=== PATIENT | male | born 1930 | race Asian ===

== ENCOUNTER 2016-09-13 19:33 | Inpatient (IN) | payer MEDICARE, OTHER ==
[2016-09-13] VITALS (7 sets, daily range): BP systolic 83–108; BP diastolic 57–70
[~2016-09-13] VITALS: Ht 167.6 cm; Wt 90.7 kg
[2016-09-13] MEDS ORDERED: Ampicillin/Sulbactam Sod 3 GM in NS 110 ML IV SCH (19:45)
[2016-09-13 20:07] LABS: MEAN CORPUSCULAR HEMOGLOBIN 35.6 PG (27.0-31.0); MEAN CORPUSCULAR HGB CONC 33.7 G/DL (32.0-36.0); MEAN CORPUSCULAR VOLUME 106 FL (80-99); PLATELET COUNT 117 K/UL (150-450); RED BLOOD COUNT 4.07 M/UL (4.70-6.10); RED CELL DISTRIBUTION WIDTH 12.6 % (11.6-14.8); WHITE BLOOD COUNT 10.3 K/UL (4.8-10.8)
[2016-09-13 20:41] LABS: TROPONIN I < 0.30 ng/mL (<=0.30)
[2016-09-13] MEDS ORDERED: ALBUTEROL2.5 MG/3 M INH (20:43)
[2016-09-13] MEDS ORDERED: ATENOLOL25 MG ORAL (20:44)
[2016-09-13 20:45] LABS: ALANINE AMINOTRANSFERASE 22 U/L (3-41); ALBUMIN/GLOBULIN RATIO 0.9 (1.0-2.7); ANION GAP 17 (5-15); ASPARTATE AMINO TRANSFERASE 26 U/L (5-40); CALCIUM 9.2 mg/dL (8.6-10.2); CARBON DIOXIDE 31 mEQ/L (20-30); CHLORIDE 100 mEQ/L (98-107); CREATININE 1.9 mg/dL (0.7-1.2); HEMOLYSIS 6; POTASSIUM 3.8 mEQ/L (3.4-4.9); SODIUM 148 mEQ/L (135-145); TOTAL PROTEIN 6.6 g/dL (6.6-8.7)
[2016-09-13] MEDS ORDERED: FUROSEMIDE40 MG ORAL (20:45)
[2016-09-13] MEDS ORDERED: TAMSULOSIN HCL0.4 MG ORAL (20:45)
[2016-09-13] MEDS ORDERED: DOCUSATE SODIU100 MG ORAL (20:45)
[2016-09-13] MEDS ORDERED: AMLODIPINE BESYL5 MG ORAL (20:46)
[2016-09-13] MEDS ORDERED: PREDNISOLO15 MG/5 M1 ORAL (20:47)
[2016-09-13] MEDS ORDERED: LOVASTATIN20 MG ORAL (20:47)
[2016-09-13] MEDS ORDERED: SENNOSIDES8.6 MG ORAL (20:48)
[2016-09-13 20:50] LABS: REFLEX LACTIC ACID YES OR NO YES
[2016-09-13] MEDS ORDERED: ACETAMINOPHEN120 MG ORAL (20:50)
[2016-09-13 20:55] LABS: CKMB 3.4 ng/mL (< 6.7)
[2016-09-13 21:05] LABS: BILIRUBIN,DIRECT 0.3 mg/dL (0.1-0.3)
[2016-09-13 21:15] LABS: LYMPHOCYTES % (MANUAL) 12 % (20-45); NEUTROPHILS % (MANUAL) 84 % (45-75); TOTAL CELLS COUNTED 100
[2016-09-13 21:16] LABS: ANISOCYTOSIS 1+; BAND NEUTROPHILS % (MANUAL) 0 % (0-8); BASOPHILS % (MANUAL) 0 % (0-2); EOSINOPHILS % (MANUAL) 0 % (0-3); PLATELET ESTIMATE DECREASED; PLATELET MORPHOLOGY NORMAL
--- NOTE | 2016-09-13 23:54 | Emergency Room Report ---
History of Present Illness General Chief Complaint: Dyspnea/Respdistress Source: Family Member, Medical Record, EMS Present Illness HPI Patient is an 86year-old male brought in by ambulance for increased difficulty breathing. Patient has prior of pulmonary fibrosis and had become more short of breath. He had usually been on 4 Liters nasal cannula which had been increased to 15L mask. He had previous noted DNR on POLST. Patient was noted to have some fever. Allergies: Coded Allergies: PENICILLINS (Verified Allergy, Unknown, 09/13/16) Patient History Past Medical History: see triage record, old chart reviewed Reviewed Nursing Documentation: PMH: Agreed, PSxH: Agreed Nursing Documentation-PMH Past Medical History: No History, Except For Hx Hypertension: Yes - Primary Hx Diabetes: Yes - Type 2 Review of Systems All Other Systems: limited - by acuity and shortness of breath Physical Exam Vital Signs Date Time Temp Pulse Resp B/P Pulse Ox O2 Delivery O2 Flow Rate FiO2 09/13/16 19:30 98.8 89 40 105/69 72 Non-Rebreather 15.0 09/13/16 19:57 100 General Appearance: alert, moderate distress, Chronically Ill Eyes: bilateral eye other - left eyelid drainage ENT: moist mucus membranes Neck: limited range of motion Respiratory: crackles - bilaterally Cardiovascular #1: edema Musculoskeletal: decreased range of motion, swelling Neurologic: alert, responsive, motor weakness Skin: well hydrated, normal turgor Medical Decision Making Diagnostic Impression: Primary Impression: Respiratory distress Additional Impressions: Pulmonary fibrosis Hypotension DNR (do not resuscitate) ER Course Patient presented for shortness of breath. Differential diagnosis included but was not limited to pneumonia, CHF, pulmonary edema, pulmonary fibrosis, pulmonary embolism, pneumothorax, among others. Patient was noted to be markedly short of breath. Because of complexity of patient's case laboratory studies were ordered. He was given IV fluids for hypotension. He was started on IV antibiotics. Patients code status was discussed with his daughter who is POA. She reiterated patient was not to be intubated except to promote comfort. He was noted to have some improvement in oxygenation with BIPAP. Patient was discussed with Dr. Frederic Julian for inpatient management. Dr. Stubbs was contacted for pulmonary consult. Labs Test 09/13/16 19:40 09/13/16 21:21 White Blood Count 10.3 K/UL (4.8-10.8) Red Blood Count 4.07 M/UL (4.70-6.10) Hemoglobin 14.5 G/DL (14.2-18.0) Hematocrit 43.0 % (42.0-52.0) Mean Corpuscular Volume 106 FL (80-99) Mean Corpuscular Hemoglobin 35.6 PG (27.0-31.0) Mean Corpuscular Hemoglobin Concent 33.7 G/DL (32.0-36.0) Red Cell Distribution Width 12.6 % (11.6-14.8) Platelet Count 117 K/UL (150-450) Mean Platelet Volume 8.0 FL (6.5-10.1) Neutrophils (%) (Auto) % (45.0-75.0) Lymphocytes (%) (Auto) % (20.0-45.0) Monocytes (%) (Auto) % (1.0-10.0) Eosinophils (%) (Auto) % (0.0-3.0) Basophils (%) (Auto) % (0.0-2.0) Differential Total Cells Counted 100 Neutrophils % (Manual) 84 % (45-75) Lymphocytes % (Manual) 12 % (20-45) Monocytes % (Manual) 4 % (1-10) Eosinophils % (Manual) 0 % (0-3) Basophils % (Manual) 0 % (0-2) Band Neutrophils 0 % (0-8) Platelet Estimate Decreased Platelet Morphology Normal Anisocytosis 1+ Sodium Level 148 mEQ/L (135-145) Potassium Level 3.8 mEQ/L (3.4-4.9) Chloride Level 100 mEQ/L (98-107) Carbon Dioxide Level 31 mEQ/L (20-30) Anion Gap 17 (5-15) Blood Urea Nitrogen 91 mg/dL (7-23) Creatinine 1.9 mg/dL (0.7-1.2) Estimat Glomerular Filtration Rate mL/min (>60) Glucose Level 130 mg/dL (74-106) Calcium Level 9.2 mg/dL (8.6-10.2) Total Bilirubin 1.1 mg/dL (0.0-1.2) Direct Bilirubin 0.3 mg/dL (0.1-0.3) Aspartate Amino Transf (AST/SGOT) 26 U/L (5-40) Alanine Aminotransferase (ALT/SGPT) 22 U/L (3-41) Alkaline Phosphatase 67 U/L (40-129) Total Creatine Kinase 45 U/L (38-174) Creatine Kinase MB 3.4 ng/mL (< 6.7) Creatine Kinase MB Relative Index 7.5 Troponin I < 0.30 ng/mL (<=0.30) Total Protein 6.6 g/dL (6.6-8.7) Albumin 3.2 g/dL (3.5-5.2) Globulin 3.4 g/dL Albumin/Globulin Ratio 0.9 (1.0-2.7) Lactic Acid Level 2.50 mmol/L (0.66-2.22) Chest X-Ray Diagnostic Results EP Interpretation: Yes Findings: no effusion, no pneumothorax, other - cardiomegaly, ectatic aorta, pulmonary scarring Number of Views: 1 Last Vital Signs Date Time Temp Pulse Resp B/P Pulse Ox O2 Delivery O2 Flow Rate FiO2 09/13/16 23:30 61 30 89/58 100 Bi-pap 80 09/13/16 21:00 99.4 09/13/16 19:45 10.0 Status: unchanged Disposition: ADMITTED INPATIENT Condition: Critical Referrals: [facility],REFERRING (PCP) Filemon Kennedy Sep 13, 2016 23:54
[2016-09-14 00:33] VITALS: BP 93/59
[2016-09-14 04:00] VITALS: BP 90/57
--- NOTE | 2016-09-14 07:49 | General Progress Note ---
Progress Note Progress Note [id number] full note dictated MANISHA PATEL September 14, 2016 07:49
[2016-09-14 08:00] VITALS: BP 100/61
[2016-09-14] MEDS ORDERED: DuoNeb 0.5-3(2.5)mg/3ml neb HHN PRN (08:00)
[2016-09-14] MEDS ORDERED: Promethazine/Codeine 5ml UD ORAL PRN (08:00)
[2016-09-14] MEDS ORDERED: Mylanta II UD 30ml ORAL PRN (08:00)
[2016-09-14] MEDS ORDERED: Nitroglycerin Subl 0.4mg tab (Bottle Of 25) SL PRN (08:00)
[2016-09-14] MEDS ORDERED: Miralax 17gm pkt ORAL PRN (08:00)
[2016-09-14] MEDS: Heparin 5000 units/ml inj SUBQ SCH ×2 (09:08→20:59)
[2016-09-14] MEDS ORDERED: Aztreonam Inj 1 GM in NS 55 ML IVPB ONE (10:00)
[2016-09-14] MEDS ORDERED: Vancomycin 1 GM in D5W 275 ML IVPB ONE (11:00)
--- NOTE | 2016-09-14 11:12 | Diagnostic Imaging Report ---
Indication: SOB Technique: One view of the chest Comparison: none Findings: There is bilateral interstitial disease diffusely. The heart is mildly enlarged. Aorta is tortuous and ectatic. Pleural spaces are grossly clear. There is evidence of prior lumbar vertebral augmentation procedure. There are degenerative changes of the lumbar spine. Impression: Diffuse interstitial parenchymal disease, acuity indeterminate in the absence of prior studies. Correlate with clinical findings Cardiomegaly Ectatic aorta, aneurysmal dilatation not excludable.
--- NOTE | 2016-09-14 12:34 | Consultation ---
History of Present Illness General Date patient seen: September 14, 2016 Chief Complaint: Dyspnea/Respdistress Present Illness HPI 86year-old male with hx of COPD, HTN, pulmonary fibrosis, alf resident , brought in by ambulance for increased difficulty breathing He had usually been on 4 Liters nasal cannula which had been increased to 15L mask. Pt was diagnosed to have pneumonia and respiratory failure and was put on BIPAP and transferred to [facility]. Pt is awake now, seems comfortable on BIPAP. Allergies: Coded Allergies: PENICILLINS (Verified Allergy, Unknown, 09/13/16) Medication History Scheduled Amlodipine Besylate* (Amlodipine Besylate*), 5 MG ORAL DAILY, (Reported) Atenolol* (Tenormin*), 25 MG ORAL DAILY, (Reported) Docusate Sodium* (Docusate Sodium*), 100 MG ORAL THREE TIMES A DAY, (Reported) Furosemide* (Lasix*), 40 MG ORAL DAILY, (Reported) Lovastatin (Lovastatin), 20 MG ORAL BEDTIME, (Reported) Sennosides* (Sennosides*), 8.6 MG ORAL DAILY, (Reported) Tamsulosin Hcl (Tamsulosin Hcl*), 0.4 MG ORAL BEDTIME, (Reported) Scheduled PRN Acetaminophen* (Tylenol*), 325 MG ORAL Q6HR PRN for Mild Pain/Temp > 100.5, ( Reported) Albuterol Sulfate* (Albuterol Sulfate Hhn*), 3 ML INH Q4H PRN for Shortness of Breath, (Reported) Miscellaneous Medications Prednisolone* (Prelone*), 20 MG ORAL, (Reported) Patient History Healthcare decision maker N Resuscitation status Advanced Directive on File Past Medical/Surgical History Past Medical/Surgical History: (1) DNR (do not resuscitate) (2) Pulmonary fibrosis Review of Systems All Other Systems: negative except mentioned in HPI Physical Exam General Appearance: WD/WN Lines, tubes and drains: peripheral HEENT: normocephalic, atraumatic Neck: non-tender, normal alignment Respiratory/Chest: chest wall non-tender, lungs clear Cardiovascular/Chest: normal peripheral pulses Abdomen: normal bowel sounds Genitourinary/Rectal: normal genital exam, normal prostate exam Extremities: non-tender Skin Exam: normal pigmentation Neurologic: parliamentary counsel II-XII grossly normal Last 24 Hour Vital Signs Date Time Temp Pulse Resp B/P Pulse Ox O2 Delivery O2 Flow Rate FiO2 09/14/16 12:00 80 09/14/16 11:04 68 23 95 Facial 60 09/14/16 09:18 65 21 96 Facial 60 09/14/16 08:00 80 09/14/16 08:00 97.8 65 24 100/61 95 Bi-pap 70 09/14/16 08:00 76 09/14/16 06:31 68 24 97 Facial 60 09/14/16 05:19 72 30 99 Facial 70 09/14/16 04:00 70 09/14/16 04:00 98.1 60 23 90/57 100 Bi-pap 09/14/16 03:45 57 23 99 Facial 80 09/14/16 01:22 73 35 100 Facial 80 09/14/16 01:00 60 09/14/16 00:33 97.2 63 26 93/59 97 Bi-pap 09/14/16 00:05 63 18 90/52 96 Bi-pap 80 09/14/16 00:00 80 09/13/16 23:30 61 30 89/58 100 Bi-pap 80 09/13/16 23:20 68 37 83/57 90 Bi-pap 70 09/13/16 22:15 61 29 89/60 99 Bi-pap 80 09/13/16 21:11 72 33 Bi-pap 100 09/13/16 21:00 66 30 Bi-pap 80 09/13/16 21:00 99.4 66 27 89/62 95 Bi-pap 80 09/13/16 20:50 69 31 99 Facial 80 09/13/16 20:30 68 25 108/70 98 Bi-pap 100 09/13/16 19:57 72 33 98 Facial 100 09/13/16 19:45 31 90/58 68 Non-Rebreather 10.0 09/13/16 19:35 99.3 77 41 105/69 66 Non-Rebreather 10.0 09/13/16 19:30 98.8 89 40 105/69 72 Non-Rebreather 15.0 Intake and Output 09/13/16 09/14/16 19:00 07:00 Intake Total 0 ml Balance 0 ml Intake Oral 0 ml # Voids 1 Laboratory Tests Test 09/13/16 19:40 09/13/16 21:21 09/14/16 08:00 White Blood Count 10.3 K/UL (4.8-10.8) Red Blood Count 4.07 M/UL (4.70-6.10) L Hemoglobin 14.5 G/DL (14.2-18.0) Hematocrit 43.0 % (42.0-52.0) Mean Corpuscular Volume 106 FL (80-99) H Mean Corpuscular Hemoglobin 35.6 PG (27.0-31.0) H Mean Corpuscular Hemoglobin Concent 33.7 G/DL (32.0-36.0) Red Cell Distribution Width 12.6 % (11.6-14.8) Platelet Count 117 K/UL (150-450) L Mean Platelet Volume 8.0 FL (6.5-10.1) Neutrophils (%) (Auto) % (45.0-75.0) Lymphocytes (%) (Auto) % (20.0-45.0) Monocytes (%) (Auto) % (1.0-10.0) Eosinophils (%) (Auto) % (0.0-3.0) Basophils (%) (Auto) % (0.0-2.0) Differential Total Cells Counted 100 Neutrophils % (Manual) 84 % (45-75) H Lymphocytes % (Manual) 12 % (20-45) L Monocytes % (Manual) 4 % (1-10) Eosinophils % (Manual) 0 % (0-3) Basophils % (Manual) 0 % (0-2) Band Neutrophils 0 % (0-8) Platelet Estimate Decreased L Platelet Morphology Normal Anisocytosis 1+ Sodium Level 148 mEQ/L (135-145) H Potassium Level 3.8 mEQ/L (3.4-4.9) Chloride Level 100 mEQ/L (98-107) Carbon Dioxide Level 31 mEQ/L (20-30) H Anion Gap 17 (5-15) H Blood Urea Nitrogen 91 mg/dL (7-23) H Creatinine 1.9 mg/dL (0.7-1.2) H Estimat Glomerular Filtration Rate mL/min (>60) Glucose Level 130 mg/dL (74-106) H Lactic Acid Level 4.10 mmol/L (0.66-2.22) H 2.50 mmol/L (0.66-2.22) H 1.40 mmol/L (0.66-2.22) Calcium Level 9.2 mg/dL (8.6-10.2) Total Bilirubin 1.1 mg/dL (0.0-1.2) Direct Bilirubin 0.3 mg/dL (0.1-0.3) Aspartate Amino Transf (AST/SGOT) 26 U/L (5-40) Alanine Aminotransferase (ALT/SGPT) 22 U/L (3-41) Alkaline Phosphatase 67 U/L (40-129) Total Creatine Kinase 45 U/L (38-174) Creatine Kinase MB 3.4 ng/mL (< 6.7) Creatine Kinase MB Relative Index 7.5 Troponin I < 0.30 ng/mL (<=0.30) Total Protein 6.6 g/dL (6.6-8.7) Albumin 3.2 g/dL (3.5-5.2) L Globulin 3.4 g/dL Albumin/Globulin Ratio 0.9 (1.0-2.7) L Height (Feet): 5 Height (Inches): 6.00 Weight (Pounds): 200 Medications Current Medications Medications (Trade) Dose Ordered Sig/Bertrand Route PRN Reason Start Time Stop Time Status Last Admin Dose Admin Acetaminophen (Tylenol) 650 mg Q4H PRN ORAL fever 09/14/16 08:00 10/14/16 07:59 Al Hydroxide/Mg Hydroxide (Mylanta II) 30 ml Q6H PRN ORAL dyspepsia 09/14/16 08:00 10/14/16 07:59 Albuterol/ Ipratropium (DuoNeb 0.5-3(2.5)mg/3ml) 3 ml EVERY 4 HOURS PRN HHN Shortness of Breath 09/14/16 08:00 09/19/16 07:59 Aztreonam 0.5 gm/ Sodium Chloride 55 ml @ 110 mls/hr Q8HR IVPB 09/14/16 14:00 09/21/16 13:59 Heparin Sodium (Porcine) (Heparin 5000 units/ml) 5,000 units EVERY 12 HOURS SUBQ 09/14/16 09:00 10/14/16 08:59 09/14/16 09:08 Levofloxacin 100 ml @ 100 mls/hr Q48H IVPB 09/15/16 20:00 09/22/16 19:59 Nitroglycerin 0.4 mg 0.4 mg Q5M PRN SL Prn Chest Pain 09/14/16 08:00 10/14/16 07:59 Ondansetron HCl (Zofran) 4 mg Q6H PRN IVP Nausea & Vomiting 09/14/16 08:00 10/14/16 07:59 Polyethylene Glycol (Miralax) 17 gm DAILYPRN PRN ORAL Constipation 09/14/16 08:00 10/14/16 07:59 Promethazine HCl/ Codeine (Phenergan with Codeine) 5 ml Q4H PRN ORAL For Cough 09/14/16 08:00 10/14/16 07:59 Temazepam (Restoril) 15 mg HSPRN PRN ORAL Insomnia 09/14/16 08:00 09/21/16 07:59 Vancomycin HCl 1 gm/Dextrose 275 ml @ 183.3 mls/ hr ONCE ONCE IVPB 09/14/16 11:00 09/14/16 12:30 09/14/16 11:58 Vancomycin HCl/ Dextrose (Vancomycin/D5W) 275 ml @ 183.3 mls/ hr Q24H IVPB 09/15/16 11:00 09/20/16 10:59 Assessment/Plan Problem List: (1) Respiratory distress ICD Codes: R06.00 - Dyspnea, unspecified SNOMED: 670011840 (2) DNR (do not resuscitate) ICD Codes: Z66 - Do not resuscitate SNOMED: 370539434 (3) Hypotension ICD Codes: I95.9 - Hypotension, unspecified SNOMED: 10389539 (4) Pulmonary fibrosis ICD Codes: J84.10 - Pulmonary fibrosis, unspecified SNOMED: 43707095 Assessment/Plan titrate bipap respiratory treatment renal w/u IV antibiotics steroids oral feeding dvt prophylaxis MONO PATEL September 14, 2016 12:34
[2016-09-14] MEDS: Aztreonam Inj 0.5 GM in NS 55 ML IVPB SCH ×2 (14:19→21:10)
[2016-09-14 14:42] LABS: ALANINE AMINOTRANSFERASE 17 U/L (3-41); ANION GAP 13 (5-15); ASPARTATE AMINO TRANSFERASE 25 U/L (5-40); CALCIUM 8.6 mg/dL (8.6-10.2); CARBON DIOXIDE 31 mEQ/L (20-30); CHLORIDE 106 mEQ/L (98-107); CREATININE 1.6 mg/dL (0.7-1.2); HEMOLYSIS 5; MAGNESIUM 2.5 mg/dL (1.7-2.5); PHOSPHORUS 4.8 mg/dL (2.5-4.8); POTASSIUM 3.6 mEQ/L (3.4-4.9); SODIUM 150 mEQ/L (135-145); TOTAL PROTEIN 5.8 g/dL (6.6-8.7); URIC ACID 13.1 mg/dL (3.0-7.5)
[2016-09-14 14:53] LABS: THYROID STIMULATING HORMONE 0.238 uIU/mL (0.300-4.500)
[2016-09-14 15:59] LABS: APPEARANCE,URINE CLEAR; KETONES,URINE NEGATIVE (NEGATIVE); LEUKOCYTE ESTERASE ,URINE NEGATIVE (NEGATIVE); NITRITE,URINE NEGATIVE (NEGATIVE); PH,URINE 5 (4.5-8.0); PROTEIN,URINE NEGATIVE (NEGATIVE); UROBILINOGEN,URINE NORMAL MG/DL (0.0-1.0)
[2016-09-14 16:42] LABS: RBC,URINE 0-2 /HPF (0 - 0)
[2016-09-14 16:43] LABS: BACTERIA,URINE FEW /HPF
[2016-09-14] MEDS ORDERED: LORazepam Inj 2mg/ml 1ml IV PRN (17:00)
--- NOTE | 2016-09-14 18:28 | Consultation ---
DATE OF CONSULTATION: 09/14/2016 NEPHROLOGY CONSULTATION REFERRING PHYSICIAN: Frederic Julian D.O. REASON FOR CONSULTATION: Acute on chronic renal failure. HISTORY OF PRESENT ILLNESS: The patient is an unfortunate 86-year-old made with a past medical history significant for history of pulmonary fibrosis, history of chronic kidney disease stage 4, history of diabetes, hypertension, BPH, hypercholesterolemia, and history of pressure ulcer on the heel, who was originally sent from [facility] to [facility] for evaluation of increasing shortness of breath. Upon arrival in the ER, the patient was placed on 4 liters nasal cannula, then later on was placed to be on BiPAP. His blood pressure was 105/69. He was mildly tachycardic with a pulse rate of 85. The patient was also found to have BUN of 91 and creatinine was 1.9, although the baseline creatinine is unknown, but based on the documentation the patient has chronic kidney stage 4. The patient consequently was admitted in the hospital. I was called for management of renal disease and electrolyte imbalance. ALLERGIES: Allergic to penicillin. PAST MEDICAL HISTORY: Includin. Diabetes. 2. Hypertension. 3. Chronic kidney disease stage 4. 4. Pulmonary fibrosis. 5. History of diastolic heart failure. 6. History of recent pneumonia. SOCIAL HISTORY: He quit smoking about 20 years ago. There is current history of alcohol or drug use. FAMILY HISTORY: Noncontributory. REVIEW OF SYSTEMS: General: The patient denies any fever, chills, or night sweats. Head And Neck: Denies any dysphagia, odynophagia, blurry vision, headache, or neck stiffness. Pulmonary: Complained of shortness of breath. No cough. No sputum. Cardiovascular: Denies any chest pain or palpitations. Gastrointestinal: Denies any nausea, vomiting, diarrhea, hematemesis, or hematochezia. Genitourinary: Denies any dysuria, frequency, or hematuria. Musculoskeletal: Complained of generalized weakness. Denies any localized weakness or numbness. PHYSICAL EXAMINATION: VITAL SIGNS: The patient had temperature of 98 degrees, blood pressure of 90/57, pulse rate of 100, and respiratory rate of 18. HEAD AND NECK: No JVP. No LAD. No thyromegaly. Extraocular movement intact. Pupils are reactive to light and accommodation. LUNGS: He has diffuse rhonchi. CARDIAC: Regular rate and rhythm. S1-S2. No murmur. No rub. ABDOMEN: Soft, nontender, and nondistended. EXTREMITIES: No edema. No clubbing. No cyanosis. LABORATORY VALUES: The patient had WBC count of 10.3, hemoglobin of 14, hematocrit of 43, and platelet count of 114,000. Chemistry reveals sodium of 148, potassium 3.8, 100 chloride, 31 bicarbonate, BUN of 91, creatinine of 1.9, glucose of 130, and calcium of 9. AST of 26, ALT of 22, alkaline phosphatase of 67. The troponin is negative. Albumin is 3.2. There is no UA. I do not see any chest x-ray. ASSESSMENT: 1. Hypernatremia. 2. Acute renal failure. 3. Chronic kidney disease. 4. Chronic respiratory failure. 5. Hypotension. PLAN: Plan for the patient to obtain a UA. Check the random urine protein and creatinine ratio to calculate the proteinuria. Check the urine, sodium, and creatinine to calculate fractional excretion of sodium. I would do ultrasound of the kidney. I would hold the Lasix or diuretics at this time. The patient does not seem to be fluid overloaded. Based on the physical examination, blood pressure and electrolytes value, this patient has chronic kidney disease. At this time, the patient has bicarbonate of 31, and also the sodium is around 148 and BUN and creatinine ratio is elevated. I would hold the diuretic to follow up with the urine sodium. May need to be started on gentle hydration. I would monitor renal function and electrolytes closely. Replace electrolytes as needed. Again, I would like to thank, Dr. Frederic Julian, for allowing me to participate in the care of this patient. Deisy Maldonado M.D. DR: Marielena JOB#: [id number] CC:
--- NOTE | 2016-09-14 19:28 | History and Physical Report ---
DATE OF ADMISSION: 09/13/2016 TIME: 2 p.m. CONSULTANTS: 1. Tanvir Stubbs M.D. 2. Arun Duffy M.D. 3. Deisy Maldonado M.D. CHIEF COMPLAINT: Increased shortness of breath. HISTORY OF PRESENT ILLNESS: The patient is an 86-year-old male from [facility] presented with above-mentioned diagnoses, admitted to [facility] for further care, complaining of slight short of breath on BiPAP. No complaints. PAST MEDICAL HISTORY: Pulmonary fibrosis and renal insufficiency. PAST SURGICAL HISTORY: Right knee. MEDICATIONS: Levofloxacin, vancomycin, aztreonam, heparin, Duo-Neb, MiraLAX, Zofran, Restoril, Mylanta, Phenergan with Codeine, and nitroglycerin. ALLERGIES: Penicillin. SOCIAL HISTORY: Nonsmoker. No alcohol. No intravenous drug abuse. FAMILY HISTORY: Noncontributory. REVIEW OF SYSTEMS: No chest pain. Slight short of breath. No nausea, vomiting or diarrhea. PHYSICAL EXAMINATION: GENERAL: Calm in bed, oriented x3, slight short of breath. VITAL SIGNS: Temperature is 97 degrees, pulse 83, respirations 20, and blood pressure 100/61. CARDIOVASCULAR: No murmur. LUNGS: Poor air exchange. ABDOMEN: Positive bowel sounds. Soft, nontender and nondistended. EXTREMITIES: No cyanosis or edema. NEUROLOGIC: The patient moves all extremities, but slightly weak. LABORATORY AND DIAGNOSTIC DATA: Platelet 117,000, otherwise CBC is normal. BMP shows sodium 148, bicarbonate 31, BUN and creatinine 91/1.9, and glucose 130. Lactic acid elevated at 4.1, 2.5 and usha 1.4. Troponin less than 0.3. Albumin 3.2. ASSESSMENT: 1. Shortness of breath. 2. Pulmonary fibrosis. 3. Renal insufficiency. PLAN: Continue pre-medications. O2 and pulmonary treatment. Antibiotics as ordered. Dietary followup. OT/PT evaluation. Resume home medications. Dr. Stubbs, Dr. Duffy and Dr. Maldonado to consult. Frederic Julian D.O. DR: [place] JOB#: [id number] CC:
--- NOTE | 2016-09-14 19:59 | Cardiology Progress Note ---
Assessment/Plan Assessment/Plan The patient is seen and examined, full consult note is dictated. Objective Last 24 Hour Vital Signs Date Time Temp Pulse Resp B/P Pulse Ox O2 Delivery O2 Flow Rate FiO2 09/14/16 18:49 81 23 Bi-pap 09/14/16 18:48 81 23 99 Facial 70 09/14/16 17:31 83 09/14/16 16:51 77 28 96 Facial 70 09/14/16 16:00 80 09/14/16 14:34 78 26 98 Facial 70 09/14/16 13:50 83 09/14/16 13:09 72 20 98 Facial 50 09/14/16 12:00 80 09/14/16 11:04 68 23 95 Facial 60 09/14/16 09:18 65 21 96 Facial 60 09/14/16 08:00 80 09/14/16 08:00 97.8 65 24 100/61 95 Bi-pap 70 09/14/16 08:00 76 09/14/16 06:31 68 24 97 Facial 60 09/14/16 05:19 72 30 99 Facial 70 09/14/16 04:00 70 09/14/16 04:00 98.1 60 23 90/57 100 Bi-pap 09/14/16 03:45 57 23 99 Facial 80 09/14/16 01:22 73 35 100 Facial 80 09/14/16 01:00 60 09/14/16 00:33 97.2 63 26 93/59 97 Bi-pap 09/14/16 00:05 63 18 90/52 96 Bi-pap 80 09/14/16 00:00 80 09/13/16 23:30 61 30 89/58 100 Bi-pap 80 09/13/16 23:20 68 37 83/57 90 Bi-pap 70 09/13/16 22:15 61 29 89/60 99 Bi-pap 80 09/13/16 21:11 72 33 Bi-pap 100 09/13/16 21:00 66 30 Bi-pap 80 09/13/16 21:00 99.4 66 27 89/62 95 Bi-pap 80 09/13/16 20:50 69 31 99 Facial 80 09/13/16 20:30 68 25 108/70 98 Bi-pap 100 Intake and Output 09/13/16 09/14/16 19:00 07:00 Intake Total 0 ml Balance 0 ml Intake Oral 0 ml # Voids 1 Laboratory Tests Test 09/13/16 21:21 09/14/16 08:00 09/14/16 13:45 09/14/16 15:04 Lactic Acid Level 2.50 mmol/L (0.66-2.22) H 1.40 mmol/L (0.66-2.22) Sodium Level 150 mEQ/L (135-145) H Potassium Level 3.6 mEQ/L (3.4-4.9) Chloride Level 106 mEQ/L (98-107) Carbon Dioxide Level 31 mEQ/L (20-30) H Anion Gap 13 (5-15) Blood Urea Nitrogen 80 mg/dL (7-23) H Creatinine 1.6 mg/dL (0.7-1.2) H Estimat Glomerular Filtration Rate mL/min (>60) Glucose Level 152 mg/dL (74-106) H Plasma/Serum Osmolality Pending Uric Acid 13.1 mg/dL (3.0-7.5) H Calcium Level 8.6 mg/dL (8.6-10.2) Phosphorus Level 4.8 mg/dL (2.5-4.8) Magnesium Level 2.5 mg/dL (1.7-2.5) Total Bilirubin 0.7 mg/dL (0.0-1.2) Aspartate Amino Transf (AST/SGOT) 25 U/L (5-40) Alanine Aminotransferase (ALT/SGPT) 17 U/L (3-41) Alkaline Phosphatase 59 U/L (40-129) Total Creatine Kinase 39 U/L (38-174) Total Protein 5.8 g/dL (6.6-8.7) L Albumin 3.0 g/dL (3.5-5.2) L Globulin 2.8 g/dL Albumin/Globulin Ratio 1.0 (1.0-2.7) Thyroid Stimulating Hormone (TSH) 0.238 uIU/mL (0.300-4.500) Free Thyroxine 1.21 ng/dL (0.86-1.85) Free Triiodothyronine Pending Cortisol Pending Urine Color Pale yellow Urine Appearance Clear Urine pH 5 (4.5-8.0) Urine Specific [place] 1.020 (1.005-1.035) Urine Protein Negative (NEGATIVE) Urine Glucose (UA) Negative (NEGATIVE) Urine Ketones Negative (NEGATIVE) Urine Occult Blood Negative (NEGATIVE) Urine Nitrite Negative (NEGATIVE) Urine Bilirubin Negative (NEGATIVE) Urine Urobilinogen Normal MG/DL (0.0-1.0) Urine Leukocyte Esterase Negative (NEGATIVE) Urine RBC 0-2 /HPF (0 - 0) H Urine WBC 2-4 /HPF (0 - 0) Urine Squamous Epithelial Cells None /LPF (NONE/OCC) Urine Bacteria Few /HPF (NONE) Urine Fine Granular Casts 2-4 /LPF (NONE) H Urine Eosinophils None seen Urine Osmolality Pending Urine Random Creatinine Pending Urine Random Microalbumin Pending Urine Random Sodium 40 mmol/L Urine Random Chloride 24 mmol/L Urine Creatinine 47.2 mg/dL Urine Microalbumin/Creatinine Ratio Pending Urine Potassium Timed 34 mmol/L VILLA ALCANTAR September 14, 2016 19:59
[2016-09-14 20:53] VITALS: BP 103/62
[2016-09-15] VITALS: BP 101/66
--- NOTE | 2016-09-15 00:38 | Consultation ---
DATE OF CONSULTATION: 09/14/2016 CARDIOLOGY CONSULTATION CONSULTING PHYSICIAN: Arun Duffy M.D. REFERRING PHYSICIAN: Frederic Julian D.O. REASON FOR CONSULTATION: Management of dyspnea from Cardiology standpoint. HISTORY OF PRESENT ILLNESS: The patient is a very pleasant 86-year-old gentleman, who presents to the hospital for increased difficulty breathing. The patient apparently has history of pulmonary fibrosis and became more short of breath. He is usually on 4 liters of oxygen per nasal cannula and required more oxygen recently. He has DNR status. The patient was also found to have fever. At the bedside, I am not able to obtain any history from the patient. Review of 12-lead electrocardiogram on arrival to the emergency department, does not show any evidence of ischemia. The rhythm appears to be normal sinus rhythm. His initial blood pressure on arrival to the emergency department was 105/69 mmHg. His pulse rate was 89, but he was severely tachypneic with respiratory rate of 40. He was admitted to [facility] for further evaluation and management. PAST MEDICAL HISTORY: Includes diabetes mellitus, hypertension, chronic kidney disease stage 4, pulmonary fibrosis, pneumonia, and history of heart failure with preserved ejection fraction. MEDICATIONS: List of medication includes acetaminophen 325 mg q.6 hours p.r.n. for pain and temperature of 100.5 degrees Fahrenheit, albuterol inhaler 3 mL q.4 hours p.r.n. shortness of breath, amlodipine 5 mg p.o. daily, atenolol 25 mg p.o. daily, Colace 100 mg p.o. three times daily, Lasix 40 mg p.o. daily, lovastatin 20 mg p.o. at bedtime, prednisone 20 mg p.o. daily, and sennosides 8.6 mg daily, and tamsulosin 0.4 mg p.o. at bedtime. SOCIAL HISTORY: Ex-smoker, quit about 20 years ago. Denies any alcohol or drug use. FAMILY HISTORY: No premature coronary artery disease in first-degree relatives according to the records. REVIEW OF SYSTEMS: HEENT: Denies any headache, diplopia, or blurred vision. Constitutional: Denies any generalized weakness, but has some fever. Denies any night sweats. Cardiovascular: Denies any chest pain, dyspnea on exertion, PND, orthopnea, or leg swelling. Pulmonary: There are complaints of shortness of breath, but no cough or sputum. Gastrointestinal: Denies any nausea, vomiting, diarrhea, constipation, abdominal pain, or GI bleed. Genitourinary: Denies any hematuria, dysuria, or incontinence. Neurology: Denies any motor dysfunction, sensory deficit, or altered speech. PHYSICAL EXAMINATION: VITAL SIGNS: Blood pressure 90/58, respirations 31, heart rate of 77, and pulse ox of 68% on non-rebreather 10 liters. GENERAL: The patient is a very pleasant 86-year-old gentleman, in [id number] respiratory distress, and on BiPAP mask. HEENT: Atraumatic and normocephalic. Anicteric. Pupils are equal, round, and reactive to light and accommodation. Extraocular muscles are intact. NECK: JVP cannot be assessed in view of the presence of a BiPAP mask. No carotid bruit. CARDIOVASCULAR: Normal S1 and S2. Regular rate and rhythm. No murmurs, gallops, or rubs. PMI is at fourth intercostal space in the midclavicular line. LUNGS: Bibasilar bilateral crackles diffusely. ABDOMEN: Soft, nontender, and nondistended. No hepatosplenomegaly. Positive bowel sounds. EXTREMITIES: No evidence of edema, clubbing, or cyanosis. LABORATORY FINDINGS: WBC 10.3, hemoglobin 14.5, hematocrit 43.0, and platelet count is 117,000. Sodium 148, potassium is 3.8, chloride 100, bicarbonate 31, BUN of 91, creatinine 1.9, glucose is 130, and calcium is 9.2. Troponin I less than 0.3. Chest x-ray shows diffuse interstitial parenchymal disease, accurately indeterminate in the absence of prior studies, correlate with clinical findings, cardiomegaly, and ectatic aorta, and an aneurysmal dilatation cannot be excluded. A 12-lead electrocardiogram shows sinus rhythm at a rate of 86 with right atrial enlargement and right axis deviation. ASSESSMENT AND PLAN: The patient is a very unfortunate 86-year-old gentleman seen in Cardiology consultation at the request of Dr. Julian. 1. Dyspnea most likely underlying chronic interstitial lung disease/pulmonary fibrosis. We would like to obtain 2D echocardiography for assessment of left ventricular systolic and diastolic function. There is some mention about the heart failure with preserved ejection fraction in the past. A 2D echocardiography showed . 2. We will currently manage the patient's hemodynamics. 3. Diabetes mellitus. 4. History of hypertension. The patient on arrival to this hospital was hypotensive. I would like to ensure that the patient does not have any septic shock as there was quite a bit of a left shift. 5. Hydration is the main castellon of therapy. This could be secondary to hypovolemia, as the patient's creatinine was also elevated. 6. As mentioned above, diastolic function assessment can assist with a hemodynamics management. 7. Further therapeutic and diagnostic decision will be based on results of above study. I would like to thank, Dr. Julian, for allowing me to participate in the care of this patient. Arun Duffy M.D. DR: RACHEL JOB#: [id number] CC:
[2016-09-15 04:48] LABS: MEAN CORPUSCULAR HEMOGLOBIN 33.6 PG (27.0-31.0); MEAN CORPUSCULAR HGB CONC 32.5 G/DL (32.0-36.0); MEAN CORPUSCULAR VOLUME 103 FL (80-99); MEAN PLATELET VOLUME 7.7 FL (6.5-10.1); PLATELET COUNT 117 K/UL (150-450); RED BLOOD COUNT 3.82 M/UL (4.70-6.10); RED CELL DISTRIBUTION WIDTH 12.9 % (11.6-14.8); WHITE BLOOD COUNT 12.1 K/UL (4.8-10.8)
[2016-09-15 05:07] LABS: ANION GAP 15 (5-15); CALCIUM 8.7 mg/dL (8.6-10.2); CARBON DIOXIDE 29 mEQ/L (20-30); CHLORIDE 111 mEQ/L (98-107); CREATININE 1.3 mg/dL (0.7-1.2); HEMOLYSIS 2; POTASSIUM 3.6 mEQ/L (3.4-4.9); SODIUM 155 mEQ/L (135-145)
[2016-09-15] MEDS: Aztreonam Inj 0.5 GM in NS 55 ML IVPB SCH (05:08)
[2016-09-15 05:11] LABS: ANION GAP 15 (5-15); CALCIUM 8.9 mg/dL (8.6-10.2); CARBON DIOXIDE 29 mEQ/L (20-30); CHLORIDE 111 mEQ/L (98-107); CREATININE 1.3 mg/dL (0.7-1.2); HEMOLYSIS 2; PHOSPHORUS 3.7 mg/dL (2.5-4.8); POTASSIUM 3.5 mEQ/L (3.4-4.9); SODIUM 155 mEQ/L (135-145)
[2016-09-15 08:00] VITALS: BP 107/65
--- NOTE | 2016-09-15 08:15 | Cardiology Report ---
APPROVED REPORT EKG Measurement Heart [id number] Sinus rhythm Left axis deviation Low voltage QRS Inferior infarct, age undetermined Anterolateral infarct, age undetermined Abnormal ECG
--- NOTE | 2016-09-15 08:21 | General Progress Note ---
Assessment/Plan Problem List: (1) Renal insufficiency ICD Codes: N28.9 - Disorder of kidney and ureter, unspecified SNOMED: 594933319 (2) Pulmonary fibrosis ICD Codes: J84.10 - Pulmonary fibrosis, unspecified SNOMED: 37131150 (3) Respiratory distress ICD Codes: R06.00 - Dyspnea, unspecified SNOMED: 796369737 (4) Hypotension ICD Codes: I95.9 - Hypotension, unspecified SNOMED: 98131684 Status: progressing, tolerating diet Assessment/Plan ot pt diet o2 pulm tx cbc bmp am endo eval Subjective Constitutional: Reports: weakness Respiratory: Reports: shortness of breath Allergies: Coded Allergies: PENICILLINS (Verified Allergy, Unknown, 09/13/16) All Systems: reviewed and negative except above Subjective bipap in place Objective Last 24 Hour Vital Signs Date Time Temp Pulse Resp B/P Pulse Ox O2 Delivery O2 Flow Rate FiO2 09/15/16 06:59 82 26 95 Facial 60 09/15/16 04:54 82 27 95 Facial 60 09/15/16 04:00 80 09/15/16 04:00 82 09/15/16 02:40 80 24 95 Facial 60 09/15/16 00:38 72 17 96 Facial 60 09/15/16 00:00 80 09/15/16 00:00 98.4 78 20 101/66 96 Bi-pap 60 09/15/16 00:00 80 09/15/16 00:00 80 09/14/16 22:44 83 28 95 Facial 60 09/14/16 20:57 86 24 98 Facial 60 09/14/16 20:53 98.8 91 24 103/62 96 Bi-pap 60 09/14/16 20:00 89 09/14/16 20:00 80 09/14/16 18:49 81 23 Bi-pap 09/14/16 18:48 81 23 99 Facial 70 09/14/16 17:31 83 09/14/16 16:51 77 28 96 Facial 70 09/14/16 16:00 80 09/14/16 14:34 78 26 98 Facial 70 09/14/16 13:50 83 09/14/16 13:09 72 20 98 Facial 50 09/14/16 12:00 80 09/14/16 11:04 68 23 95 Facial 60 09/14/16 09:18 65 21 96 Facial 60 Intake and Output 09/14/16 09/15/16 19:00 07:00 Intake Total 55 ml Output Total 400 ml 500 ml Balance -345 ml -500 ml IV Total 55 ml Output Urine Total 400 ml 500 ml Laboratory Tests 09/14/16 13:45: Sodium Level 150H, Potassium Level 3.6, Chloride Level 106, Carbon Dioxide Level 31H, Anion Gap 13, Blood Urea Nitrogen 80H, Creatinine 1.6H, Estimat Glomerular Filtration Rate , Glucose Level 152H, Plasma/Serum Osmolality [ Pending], Uric Acid 13.1H, Calcium Level 8.6, Phosphorus Level 4.8, Magnesium Level 2.5, Total Bilirubin 0.7, Aspartate Amino Transf (AST/SGOT) 25, Alanine Aminotransferase (ALT/SGPT) 17, Alkaline Phosphatase 59, Total Creatine Kinase 39, Total Protein 5.8L, Albumin 3.0L, Globulin 2.8, Albumin/Globulin Ratio 1.0, Thyroid Stimulating Hormone (TSH) 0.238L, Free Thyroxine 1.21, Free Triiodothyronine [Pending], Cortisol [Pending] 09/14/16 15:04: Urine Color Pale yellow, Urine Appearance Clear, Urine pH 5, Urine Specific [place] 1.020, Urine Protein Negative, Urine Glucose (UA) Negative, Urine Ketones Negative, Urine Occult Blood Negative, Urine Nitrite Negative, Urine Bilirubin Negative, Urine Urobilinogen Normal, Urine Leukocyte Esterase Negative , Urine RBC 0-2H, Urine WBC 2-4, Urine Squamous Epithelial Cells None, Urine Bacteria Few, Urine Fine Granular Casts 2-4H, Urine Eosinophils None seen, Urine Osmolality [Pending], Urine Random Creatinine [Pending], Urine Random Microalbumin [Pending], Urine Random Sodium 40, Urine Random Chloride 24, Urine Creatinine 47.2, Urine Microalbumin/Creatinine Ratio [Pending], Urine Potassium Timed 34 09/15/16 03:45: Sodium Level 155H, Potassium Level 3.6, Chloride Level 111H, Carbon Dioxide Level 29, Anion Gap 15, Blood Urea Nitrogen 67H, Creatinine 1.3H, Estimat Glomerular Filtration Rate , Glucose Level 113H, Calcium Level 8.7, Phosphorus Level 3.7, Albumin 2.8L, White Blood Count 12.1H, Red Blood Count 3.82L, Hemoglobin 12.8L, Hematocrit 39.5L, Mean Corpuscular Volume 103H, Mean Corpuscular Hemoglobin 33.6H, Mean Corpuscular Hemoglobin Concent 32.5, Red Cell Distribution Width 12.9, Platelet Count 117L, Mean Platelet Volume 7.7, Neutrophils (%) (Auto) , Lymphocytes (%) (Auto) , Monocytes (%) (Auto) , Eosinophils (%) (Auto) , Basophils (%) (Auto) Height (Feet): 5 Height (Inches): 6.00 Weight (Pounds): 200 General Appearance: lethargic EENT: normal ENT inspection Neck: normal alignment Cardiovascular: normal peripheral pulses, normal rate, regular rhythm Respiratory/Chest: chest wall non-tender, lungs clear, decreased breath sounds Abdomen: normal bowel sounds, non tender, soft Extremities: normal inspection Edema: no edema noted Arm (L), no edema noted Arm (R), no edema noted Leg (L), no edema noted Leg (R), no edema noted Pedal (L), no edema noted Pedal (R), no edema noted Generalized Neurologic: responsive Skin: normal pigmentation, warm/dry JACQUIE ROTHMAN September 15, 2016 08:21
[2016-09-15 08:38] LABS: FREE TRIIODOTHYRONINE 1.5 pg/mL (2.0-4.4)
[2016-09-15] MEDS: Heparin 5000 units/ml inj SUBQ SCH ×2 (08:46→21:00)
[2016-09-15] MEDS: Vancomycin 750 MG in D5W 275 ML IVPB SCH (11:12)
[2016-09-15 12:00] VITALS: BP 100/67
--- NOTE | 2016-09-15 12:00 | Nephrology Progress Note ---
Assessment/Plan Assessment 1. Hypernatremia. 2. Acute renal failure. 3. Chronic kidney disease. 4. Chronic respiratory failure. 5. Hypotension. Plan Plan to continue ivf replace electrolyte hold diuretic oral hydration monitoring in and out put Subjective Constitutional: Reports: fever, malaise HEENT: Reports: no symptoms Genitourinary: Reports: no symptoms Neurologic/Psychiatric: Reports: no symptoms Subjective continue to be on BIPAP C/O SOB Objective Objective Last 24 Hour Vital Signs Date Time Temp Pulse Resp B/P Pulse Ox O2 Delivery O2 Flow Rate FiO2 09/15/16 08:00 60 09/15/16 08:00 82 09/15/16 08:00 98.7 90 32 107/65 91 Bi-pap 60 09/15/16 06:59 82 26 95 Facial 60 09/15/16 04:54 82 27 95 Facial 60 09/15/16 04:00 80 09/15/16 04:00 82 09/15/16 02:40 80 24 95 Facial 60 09/15/16 00:38 72 17 96 Facial 60 09/15/16 00:00 80 09/15/16 00:00 98.4 78 20 101/66 96 Bi-pap 60 09/15/16 00:00 80 09/15/16 00:00 80 09/14/16 22:44 83 28 95 Facial 60 09/14/16 20:57 86 24 98 Facial 60 09/14/16 20:53 98.8 91 24 103/62 96 Bi-pap 60 09/14/16 20:00 89 09/14/16 20:00 80 09/14/16 18:49 81 23 Bi-pap 09/14/16 18:48 81 23 99 Facial 70 09/14/16 17:31 83 09/14/16 16:51 77 28 96 Facial 70 09/14/16 16:00 80 09/14/16 14:34 78 26 98 Facial 70 09/14/16 13:50 83 09/14/16 13:09 72 20 98 Facial 50 09/14/16 12:00 80 Intake and Output 09/14/16 09/15/16 19:00 07:00 Intake Total 55 ml Output Total 400 ml 500 ml Balance -345 ml -500 ml IV Total 55 ml Output Urine Total 400 ml 500 ml Laboratory Tests 09/14/16 13:45: Sodium Level 150H, Potassium Level 3.6, Chloride Level 106, Carbon Dioxide Level 31H, Anion Gap 13, Blood Urea Nitrogen 80H, Creatinine 1.6H, Estimat Glomerular Filtration Rate , Glucose Level 152H, Plasma/Serum Osmolality [ Pending], Uric Acid 13.1H, Calcium Level 8.6, Phosphorus Level 4.8, Magnesium Level 2.5, Total Bilirubin 0.7, Aspartate Amino Transf (AST/SGOT) 25, Alanine Aminotransferase (ALT/SGPT) 17, Alkaline Phosphatase 59, Total Creatine Kinase 39, Total Protein 5.8L, Albumin 3.0L, Globulin 2.8, Albumin/Globulin Ratio 1.0, Thyroid Stimulating Hormone (TSH) 0.238L, Free Thyroxine 1.21, Free Triiodothyronine 1.5L, Cortisol [Pending] 09/14/16 15:04: Urine Color Pale yellow, Urine Appearance Clear, Urine pH 5, Urine Specific [place] 1.020, Urine Protein Negative, Urine Glucose (UA) Negative, Urine Ketones Negative, Urine Occult Blood Negative, Urine Nitrite Negative, Urine Bilirubin Negative, Urine Urobilinogen Normal, Urine Leukocyte Esterase Negative , Urine RBC 0-2H, Urine WBC 2-4, Urine Squamous Epithelial Cells None, Urine Bacteria Few, Urine Fine Granular Casts 2-4H, Urine Eosinophils None seen, Urine Osmolality [Pending], Urine Random Creatinine [Pending], Urine Random Microalbumin [Pending], Urine Random Sodium 40, Urine Random Chloride 24, Urine Creatinine 47.2, Urine Microalbumin/Creatinine Ratio [Pending], Urine Potassium Timed 34 09/15/16 03:45: Sodium Level 155H, Potassium Level 3.6, Chloride Level 111H, Carbon Dioxide Level 29, Anion Gap 15, Blood Urea Nitrogen 67H, Creatinine 1.3H, Estimat Glomerular Filtration Rate , Glucose Level 113H, Calcium Level 8.7, Phosphorus Level 3.7, Albumin 2.8L, White Blood Count 12.1H, Red Blood Count 3.82L, Hemoglobin 12.8L, Hematocrit 39.5L, Mean Corpuscular Volume 103H, Mean Corpuscular Hemoglobin 33.6H, Mean Corpuscular Hemoglobin Concent 32.5, Red Cell Distribution Width 12.9, Platelet Count 117L, Mean Platelet Volume 7.7, Neutrophils (%) (Auto) , Lymphocytes (%) (Auto) , Monocytes (%) (Auto) , Eosinophils (%) (Auto) , Basophils (%) (Auto) Height (Feet): 5 Height (Inches): 6.00 Weight (Pounds): 200 Objective HEAD AND NECK: No JVP. No LAD. No thyromegaly. Extraocular movement intact. Pupils are reactive to light and accommodation. LUNGS: He has diffuse rhonchi. CARDIAC: Regular rate and rhythm. S1-S2. No murmur. No rub. ABDOMEN: Soft, nontender, and nondistended. EXTREMITIES: No edema. No clubbing. No cyanosis. MANISHA PATEL September 15, 2016 12:00
--- NOTE | 2016-09-15 12:33 | Pulmonology Progress Note ---
Assessment/Plan Problems: (1) Respiratory distress (2) DNR (do not resuscitate) (3) Hypotension (4) Pulmonary fibrosis Assessment/Plan still needs BIPA cxr today titrate fio2 to sat of 92% chest pt f/u electrolytes, cultures Subjective ROS Limited/Unobtainable: No Allergies: Coded Allergies: PENICILLINS (Verified Allergy, Unknown, 09/13/16) Objective Last 24 Hour Vital Signs Date Time Temp Pulse Resp B/P Pulse Ox O2 Delivery O2 Flow Rate FiO2 09/15/16 12:20 85 09/15/16 12:00 60 09/15/16 10:58 76 25 96 Facial 60 09/15/16 09:00 86 23 96 Facial 60 09/15/16 08:00 60 09/15/16 08:00 82 09/15/16 08:00 98.7 90 32 107/65 91 Bi-pap 60 09/15/16 06:59 82 26 95 Facial 60 09/15/16 04:54 82 27 95 Facial 60 09/15/16 04:00 80 09/15/16 04:00 82 09/15/16 02:40 80 24 95 Facial 60 09/15/16 00:38 72 17 96 Facial 60 09/15/16 00:00 80 09/15/16 00:00 98.4 78 20 101/66 96 Bi-pap 60 09/15/16 00:00 80 09/15/16 00:00 80 09/14/16 22:44 83 28 95 Facial 60 09/14/16 20:57 86 24 98 Facial 60 09/14/16 20:53 98.8 91 24 103/62 96 Bi-pap 60 09/14/16 20:00 89 09/14/16 20:00 80 09/14/16 18:49 81 23 Bi-pap 09/14/16 18:48 81 23 99 Facial 70 09/14/16 17:31 83 09/14/16 16:51 77 28 96 Facial 70 09/14/16 16:00 80 09/14/16 14:34 78 26 98 Facial 70 09/14/16 13:50 83 09/14/16 13:09 72 20 98 Facial 50 Intake and Output 09/14/16 09/15/16 19:00 07:00 Intake Total 55 ml Output Total 400 ml 500 ml Balance -345 ml -500 ml IV Total 55 ml Output Urine Total 400 ml 500 ml General Appearance: WD/WN HEENT: normocephalic, atraumatic Respiratory/Chest: chest wall non-tender, lungs clear Cardiovascular: normal peripheral pulses, normal rate Abdomen: normal bowel sounds, soft, non tender Genitourinary: normal external genitalia Neurologic/Psychiatric: clinical biochemical geneticist II-XII grossly normal Microbiology Date/Time Source Procedure Growth Status 09/13/16 20:30 Blood Blood Culture - Preliminary NO GROWTH AFTER 24 HOURS Resulted 09/13/16 19:40 Blood Blood Culture - Preliminary NO GROWTH AFTER 24 HOURS Resulted Laboratory Tests 09/14/16 13:45: Sodium Level 150H, Potassium Level 3.6, Chloride Level 106, Carbon Dioxide Level 31H, Anion Gap 13, Blood Urea Nitrogen 80H, Creatinine 1.6H, Estimat Glomerular Filtration Rate , Glucose Level 152H, Plasma/Serum Osmolality [ Pending], Uric Acid 13.1H, Calcium Level 8.6, Phosphorus Level 4.8, Magnesium Level 2.5, Total Bilirubin 0.7, Aspartate Amino Transf (AST/SGOT) 25, Alanine Aminotransferase (ALT/SGPT) 17, Alkaline Phosphatase 59, Total Creatine Kinase 39, Total Protein 5.8L, Albumin 3.0L, Globulin 2.8, Albumin/Globulin Ratio 1.0, Thyroid Stimulating Hormone (TSH) 0.238L, Free Thyroxine 1.21, Free Triiodothyronine 1.5L, Cortisol [Pending] 09/14/16 15:04: Urine Color Pale yellow, Urine Appearance Clear, Urine pH 5, Urine Specific [place] 1.020, Urine Protein Negative, Urine Glucose (UA) Negative, Urine Ketones Negative, Urine Occult Blood Negative, Urine Nitrite Negative, Urine Bilirubin Negative, Urine Urobilinogen Normal, Urine Leukocyte Esterase Negative , Urine RBC 0-2H, Urine WBC 2-4, Urine Squamous Epithelial Cells None, Urine Bacteria Few, Urine Fine Granular Casts 2-4H, Urine Eosinophils None seen, Urine Osmolality [Pending], Urine Random Creatinine [Pending], Urine Random Microalbumin [Pending], Urine Random Sodium 40, Urine Random Chloride 24, Urine Creatinine 47.2, Urine Microalbumin/Creatinine Ratio [Pending], Urine Potassium Timed 34 09/15/16 03:45: Sodium Level 155H, Potassium Level 3.6, Chloride Level 111H, Carbon Dioxide Level 29, Anion Gap 15, Blood Urea Nitrogen 67H, Creatinine 1.3H, Estimat Glomerular Filtration Rate , Glucose Level 113H, Calcium Level 8.7, Phosphorus Level 3.7, Albumin 2.8L, White Blood Count 12.1H, Red Blood Count 3.82L, Hemoglobin 12.8L, Hematocrit 39.5L, Mean Corpuscular Volume 103H, Mean Corpuscular Hemoglobin 33.6H, Mean Corpuscular Hemoglobin Concent 32.5, Red Cell Distribution Width 12.9, Platelet Count 117L, Mean Platelet Volume 7.7, Neutrophils (%) (Auto) , Lymphocytes (%) (Auto) , Monocytes (%) (Auto) , Eosinophils (%) (Auto) , Basophils (%) (Auto) Current Medications Medications (Trade) Dose Ordered Sig/Bertrand Route PRN Reason Start Time Stop Time Status Last Admin Dose Admin Acetaminophen (Tylenol) 650 mg Q4H PRN ORAL fever 09/14/16 08:00 10/14/16 07:59 Al Hydroxide/Mg Hydroxide (Mylanta II) 30 ml Q6H PRN ORAL dyspepsia 09/14/16 08:00 10/14/16 07:59 Albuterol/ Ipratropium (DuoNeb 0.5-3(2.5)mg/3ml) 3 ml EVERY 4 HOURS PRN HHN Shortness of Breath 09/14/16 08:00 09/19/16 07:59 Aztreonam 0.5 gm/ Sodium Chloride 55 ml @ 110 mls/hr Q8HR IVPB 09/14/16 14:00 09/21/16 13:59 09/15/16 05:08 Heparin Sodium (Porcine) (Heparin 5000 units/ml) 5,000 units EVERY 12 HOURS SUBQ 09/14/16 09:00 10/14/16 08:59 09/15/16 08:46 Levofloxacin 100 ml @ 100 mls/hr Q48H IVPB 09/15/16 20:00 09/22/16 19:59 Lorazepam (Ativan 2mg/ml 1ml) 0.5 mg Q4H PRN IV For Anxiety 09/14/16 17:00 09/21/16 16:59 Nitroglycerin 0.4 mg 0.4 mg Q5M PRN SL Prn Chest Pain 09/14/16 08:00 10/14/16 07:59 Ondansetron HCl (Zofran) 4 mg Q6H PRN IVP Nausea & Vomiting 09/14/16 08:00 10/14/16 07:59 Polyethylene Glycol (Miralax) 17 gm DAILYPRN PRN ORAL Constipation 09/14/16 08:00 10/14/16 07:59 Promethazine HCl/ Codeine (Phenergan with Codeine) 5 ml Q4H PRN ORAL For Cough 09/14/16 08:00 10/14/16 07:59 Temazepam (Restoril) 15 mg HSPRN PRN ORAL Insomnia 09/14/16 08:00 09/21/16 07:59 Vancomycin HCl/ Dextrose (Vancomycin/D5W) 275 ml @ 183.3 mls/ hr Q24H IVPB 09/15/16 11:00 09/20/16 10:59 09/15/16 11:12 MONO PATEL September 15, 2016 12:33
--- NOTE | 2016-09-15 12:47 | Diagnostic Imaging Report ---
Indication:Elevated Bun and Creatinine. Technique: Grayscale and duplex Doppler imaging of the kidneys performed. Comparison: None Findings: The size, contour, and echogenicity of both kidneys are within normal limits. There are several small cysts within both kidneys. The right kidney is 10.4 CM. Left kidney 11 CM in length. There is no hydronephrosis. The IVC and urinary bladder are unremarkable. The prostate is enlarged measuring 6 x 5.1 x 5.1 cm for a volume of 83 cc. Impression: Small bilateral renal cysts. Prostate enlargement
--- NOTE | 2016-09-15 14:21 | Infectious Diseases Prog Note ---
Assessment/Plan Problems: (1) Pneumonia Assessment & Plan: await sputum culture, continue vancomycin and levofloxacin, will stop aztreonam, monitor CXR. recommend CT chest when stable for further evaluation (2) Pulmonary fibrosis Assessment & Plan: chronic, continue oxygen and bronchodialators as need, pulmonary is following (3) Respiratory distress Assessment & Plan: due to the above, on BIPAP, titrate oxygen as needed (4) Hypotension Assessment & Plan: rule out sepsis, improving, continue vancomycin and levaquin , await blood culture Subjective Allergies: Coded Allergies: PENICILLINS (Verified Allergy, Unknown, 09/13/16) Objective Vital Signs Last 24 Hour Vital Signs Date Time Temp Pulse Resp B/P Pulse Ox O2 Delivery O2 Flow Rate FiO2 09/15/16 12:57 84 20 97 Facial 60 09/15/16 12:20 85 09/15/16 12:00 60 09/15/16 12:00 99.1 85 25 100/67 96 Bi-pap 60 09/15/16 10:58 76 25 96 Facial 60 09/15/16 09:00 86 23 96 Facial 60 09/15/16 08:00 60 09/15/16 08:00 82 09/15/16 08:00 98.7 90 32 107/65 91 Bi-pap 60 09/15/16 06:59 82 26 95 Facial 60 09/15/16 04:54 82 27 95 Facial 60 09/15/16 04:00 80 09/15/16 04:00 82 09/15/16 02:40 80 24 95 Facial 60 09/15/16 00:38 72 17 96 Facial 60 09/15/16 00:00 80 09/15/16 00:00 98.4 78 20 101/66 96 Bi-pap 60 09/15/16 00:00 80 09/15/16 00:00 80 09/14/16 22:44 83 28 95 Facial 60 09/14/16 20:57 86 24 98 Facial 60 09/14/16 20:53 98.8 91 24 103/62 96 Bi-pap 60 09/14/16 20:00 89 09/14/16 20:00 80 09/14/16 18:49 81 23 Bi-pap 09/14/16 18:48 81 23 99 Facial 70 09/14/16 17:31 83 09/14/16 16:51 77 28 96 Facial 70 09/14/16 16:00 80 09/14/16 14:34 78 26 98 Facial 70 Height (Feet): 5 Height (Inches): 6.00 Weight (Pounds): 200 Microbiology Date/Time Source Procedure Growth Status 09/13/16 20:30 Blood Blood Culture - Preliminary NO GROWTH AFTER 24 HOURS Resulted 09/13/16 19:40 Blood Blood Culture - Preliminary Resulted Laboratory Tests Test 09/14/16 15:04 09/15/16 03:45 Urine Color Pale yellow Urine Appearance Clear Urine pH 5 (4.5-8.0) Urine Specific [place] 1.020 (1.005-1.035) Urine Protein Negative (NEGATIVE) Urine Glucose (UA) Negative (NEGATIVE) Urine Ketones Negative (NEGATIVE) Urine Occult Blood Negative (NEGATIVE) Urine Nitrite Negative (NEGATIVE) Urine Bilirubin Negative (NEGATIVE) Urine Urobilinogen Normal MG/DL (0.0-1.0) Urine Leukocyte Esterase Negative (NEGATIVE) Urine RBC 0-2 /HPF (0 - 0) H Urine WBC 2-4 /HPF (0 - 0) Urine Squamous Epithelial Cells None /LPF (NONE/OCC) Urine Bacteria Few /HPF (NONE) Urine Fine Granular Casts 2-4 /LPF (NONE) H Urine Eosinophils None seen Urine Osmolality Pending Urine Random Creatinine Pending Urine Random Microalbumin Pending Urine Random Sodium 40 mmol/L Urine Random Chloride 24 mmol/L Urine Creatinine 47.2 mg/dL Urine Microalbumin/Creatinine Ratio Pending Urine Potassium Timed 34 mmol/L White Blood Count 12.1 K/UL (4.8-10.8) H Red Blood Count 3.82 M/UL (4.70-6.10) L Hemoglobin 12.8 G/DL (14.2-18.0) L Hematocrit 39.5 % (42.0-52.0) L Mean Corpuscular Volume 103 FL (80-99) H Mean Corpuscular Hemoglobin 33.6 PG (27.0-31.0) H Mean Corpuscular Hemoglobin Concent 32.5 G/DL (32.0-36.0) Red Cell Distribution Width 12.9 % (11.6-14.8) Platelet Count 117 K/UL (150-450) L Mean Platelet Volume 7.7 FL (6.5-10.1) Neutrophils (%) (Auto) % (45.0-75.0) Lymphocytes (%) (Auto) % (20.0-45.0) Monocytes (%) (Auto) % (1.0-10.0) Eosinophils (%) (Auto) % (0.0-3.0) Basophils (%) (Auto) % (0.0-2.0) Sodium Level 155 mEQ/L (135-145) H Potassium Level 3.6 mEQ/L (3.4-4.9) Chloride Level 111 mEQ/L (98-107) H Carbon Dioxide Level 29 mEQ/L (20-30) Anion Gap 15 (5-15) Blood Urea Nitrogen 67 mg/dL (7-23) H Creatinine 1.3 mg/dL (0.7-1.2) H Estimat Glomerular Filtration Rate mL/min (>60) Glucose Level 113 mg/dL (74-106) H Calcium Level 8.7 mg/dL (8.6-10.2) Phosphorus Level 3.7 mg/dL (2.5-4.8) Albumin 2.8 g/dL (3.5-5.2) L Current Medications Medications (Trade) Dose Ordered Sig/Bertrand Route PRN Reason Start Time Stop Time Status Last Admin Dose Admin Acetaminophen (Tylenol) 650 mg Q4H PRN ORAL fever 09/14/16 08:00 10/14/16 07:59 Al Hydroxide/Mg Hydroxide (Mylanta II) 30 ml Q6H PRN ORAL dyspepsia 09/14/16 08:00 10/14/16 07:59 Albuterol/ Ipratropium (DuoNeb 0.5-3(2.5)mg/3ml) 3 ml EVERY 4 HOURS PRN HHN Shortness of Breath 09/14/16 08:00 09/19/16 07:59 Aztreonam 0.5 gm/ Sodium Chloride 55 ml @ 110 mls/hr Q8HR IVPB 09/14/16 14:00 09/21/16 13:59 09/15/16 05:08 Heparin Sodium (Porcine) (Heparin 5000 units/ml) 5,000 units EVERY 12 HOURS SUBQ 09/14/16 09:00 10/14/16 08:59 09/15/16 08:46 Levofloxacin 100 ml @ 100 mls/hr Q48H IVPB 09/15/16 20:00 09/22/16 19:59 Lorazepam (Ativan 2mg/ml 1ml) 0.5 mg Q4H PRN IV For Anxiety 09/14/16 17:00 09/21/16 16:59 Nitroglycerin 0.4 mg 0.4 mg Q5M PRN SL Prn Chest Pain 09/14/16 08:00 10/14/16 07:59 Ondansetron HCl (Zofran) 4 mg Q6H PRN IVP Nausea & Vomiting 09/14/16 08:00 10/14/16 07:59 Polyethylene Glycol (Miralax) 17 gm DAILYPRN PRN ORAL Constipation 09/14/16 08:00 10/14/16 07:59 Promethazine HCl/ Codeine (Phenergan with Codeine) 5 ml Q4H PRN ORAL For Cough 09/14/16 08:00 10/14/16 07:59 Temazepam (Restoril) 15 mg HSPRN PRN ORAL Insomnia 09/14/16 08:00 09/21/16 07:59 Vancomycin HCl/ Dextrose (Vancomycin/D5W) 275 ml @ 183.3 mls/ hr Q24H IVPB 09/15/16 11:00 09/20/16 10:59 09/15/16 11:12 Ralf Jaramillo M.D. September 15, 2016 14:21
--- NOTE | 2016-09-15 15:01 | Diagnostic Imaging Report ---
Indication: Dyspnea Comparison: 09/13/16 A single view chest radiograph was obtained. Findings: Reticular interstitial densities and groundglass opacities noted throughout the lungs fairly extensive in degree but unchanged from the last examination. The heart is enlarged. No obvious pleural effusions are appreciated. 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 Suspect interstitial edema
[2016-09-15 16:00] VITALS: BP 104/59
[2016-09-15] MEDS ORDERED: NS 275ml ONE (17:48)
[2016-09-15] MEDS ORDERED: Tubing IV Secondary IV ONE (17:48)
[2016-09-15 20:00] VITALS: BP 101/67
--- NOTE | 2016-09-15 21:58 | Consultation ---
DATE OF CONSULTATION: INFECTIOUS DISEASE CONSULTATION CONSULTING PHYSICIAN: Ralf Jaramillo M.D. REQUESTING PHYSICIAN: Frederic Julian D.O. REASON FOR CONSULTATION: Severe pneumonia with pulmonary fibrosis and acute respiratory failure. Recommendation for antibiotics therapy in a patient, who is allergic to penicillin. HISTORY OF PRESENT ILLNESS: The patient is an 86-year-old male with past medical history of hypertension, diabetes type 2, and chronic pulmonary fibrosis, presented to [facility] via ambulance for shortness of breath and progressive dyspnea. The patient had history of pulmonary fibrosis and he developed shortness of breath, which has been progressive. The patient is usually on 4 liters nasal cannula at baseline, but his oxygen requirement has increased to 15 liters via mask. The patient was brought into the hospital due to fever too and worsening shortness of breath with hypoxemia. The patient had a chest x-ray, which showed diffuse pulmonary fibrosis with infiltration, so he was started on intravenous aztreonam, levofloxacin, and vancomycin by the admitting team and I was consulted for antibiotics recommendation and further management since he is allergic to penicillin. As of note, the patient is a poor historian and cannot provide any history. He is on BiPAP currently. History was mainly obtained from the medical record and nursing staff. PAST MEDICAL HISTORY: Significant for hypertension, diabetes, and chronic pulmonary fibrosis. PAST SURGICAL HISTORY: Negative. MEDICATIONS: He is on vancomycin, levofloxacin, and aztreonam. For the rest of his medications, please refer to MAR. ALLERGIES: He is allergic to penicillin. SOCIAL HISTORY: Unable to obtain. FAMILY HISTORY: Unable to obtain. REVIEW OF SYSTEMS: Unable to obtain. PHYSICAL EXAMINATION: VITAL SIGNS: Temperature 99.1 degrees, pulse 85, respirations 25, blood pressure 100/67, and pulse oximetry 96% on FiO2 of 60% on BiPAP. GENERAL: An elderly male, up in bed, awake, alert, breathing on BiPAP with a mask, seems comfortable, and not in distress. HEENT: Normocephalic and atraumatic. Pupils are reactive to light equally. Moist oral mucosa. No exudate. NECK: Supple. No lymphadenopathy. CARDIOVASCULAR: Regular rate and rhythm. No murmur or gallop. LUNGS: He had diminished breathing sounds with crackles mainly at the bases. No wheezing or rhonchi. ABDOMEN: Soft, nontender, and nondistended. Positive bowel sounds. No hepatosplenomegaly or ascites. EXTREMITIES: No edema or cyanosis. SKIN: No rash or hives. LABORATORY DATA: Labs showed white count of 12.1, hemoglobin of 12.8, and platelet count of 117,000. BUN of 67 and creatinine of 1.3. Urinalysis was negative for leukocyte esterase and nitrates. MICROBIOLOGY: Blood culture x1 on 09/13/2016 showed gram-positive cocci in clusters. IMAGING: Chest x-ray showed diffuse interstitial parenchymal disease, QT indeterminate, cardiomegaly, and ectatic aorta. Renal ultrasound showed small bilateral renal cysts and prostate enlargement. ASSESSMENT AND PLAN: 1. Severe pneumonia complicated with hypoxemia and respiratory failure. We will continue vancomycin and levofloxacin for now. Await sputum culture. If it produces any, we will stop aztreonam, monitor chest x-ray, and recommend CT scan of the chest when stable for further evaluation of his lung parenchyma and vascular anatomy. 2. Pulmonary fibrosis seems to be chronic. Continue oxygen, bronchodilators, and may need lung biopsy in the future to find out the exact mechanism. [employer] is following. 3. Respiratory distress with acute respiratory failure due to the above on BiPAP. Titrate oxygen as needed. Monitor blood gases. Pulmonary is following. 4. Hypotension, rule out sepsis, improving. Continue vancomycin and Levaquin empiric treatment. Await blood culture results. Ralf Jaramillo M.D. DR: ALE JOB#: [id number] CC:
--- NOTE | 2016-09-15 23:31 | Cardiology Progress Note ---
Assessment/Plan Assessment/Plan 1. Dyspnea most likely underlying chronic interstitial lung disease/pulmonary fibrosis. Normal LVEF by echocardiogram. 2. Mild 3. Severe pulmonary HtN. 4. Diabetes mellitus. 5. History of hypertension. Subjective Subjective Sinus rhythm at 95. Objective Last 24 Hour Vital Signs Date Time Temp Pulse Resp B/P Pulse Ox O2 Delivery O2 Flow Rate FiO2 09/15/16 21:30 94 24 95 Facial 60 09/15/16 20:00 98.4 110 20 101/67 94 Mechanical Ventilator 09/15/16 19:55 90 29 95 Facial 60 09/15/16 19:44 87 09/15/16 16:55 83 20 96 Facial 60 09/15/16 16:27 85 09/15/16 16:00 98.6 90 42 104/59 95 Bi-pap 60 09/15/16 16:00 60 09/15/16 14:59 80 21 96 Facial 60 09/15/16 12:57 84 20 97 Facial 60 09/15/16 12:20 85 09/15/16 12:00 60 09/15/16 12:00 99.1 85 25 100/67 96 Bi-pap 60 09/15/16 10:58 76 25 96 Facial 60 09/15/16 09:00 86 23 96 Facial 60 09/15/16 08:00 60 09/15/16 08:00 82 09/15/16 08:00 98.7 90 32 107/65 91 Bi-pap 60 09/15/16 06:59 82 26 95 Facial 60 09/15/16 04:54 82 27 95 Facial 60 09/15/16 04:00 80 09/15/16 04:00 82 09/15/16 02:40 80 24 95 Facial 60 09/15/16 00:38 72 17 96 Facial 60 09/15/16 00:00 80 09/15/16 00:00 98.4 78 20 101/66 96 Bi-pap 60 09/15/16 00:00 80 09/15/16 00:00 80 Intake and Output 09/14/16 09/15/16 19:00 07:00 Intake Total 55 ml Output Total 400 ml 500 ml Balance -345 ml -500 ml IV Total 55 ml Output Urine Total 400 ml 500 ml 2D Echo: EF 55%, Mild /AR, small pericardial effusion, RVSP 64 mmHg Laboratory Tests Test 09/15/16 03:45 White Blood Count 12.1 K/UL (4.8-10.8) H Red Blood Count 3.82 M/UL (4.70-6.10) L Hemoglobin 12.8 G/DL (14.2-18.0) L Hematocrit 39.5 % (42.0-52.0) L Mean Corpuscular Volume 103 FL (80-99) H Mean Corpuscular Hemoglobin 33.6 PG (27.0-31.0) H Mean Corpuscular Hemoglobin Concent 32.5 G/DL (32.0-36.0) Red Cell Distribution Width 12.9 % (11.6-14.8) Platelet Count 117 K/UL (150-450) L Mean Platelet Volume 7.7 FL (6.5-10.1) Neutrophils (%) (Auto) % (45.0-75.0) Lymphocytes (%) (Auto) % (20.0-45.0) Monocytes (%) (Auto) % (1.0-10.0) Eosinophils (%) (Auto) % (0.0-3.0) Basophils (%) (Auto) % (0.0-2.0) Sodium Level 155 mEQ/L (135-145) H Potassium Level 3.6 mEQ/L (3.4-4.9) Chloride Level 111 mEQ/L (98-107) H Carbon Dioxide Level 29 mEQ/L (20-30) Anion Gap 15 (5-15) Blood Urea Nitrogen 67 mg/dL (7-23) H Creatinine 1.3 mg/dL (0.7-1.2) H Estimat Glomerular Filtration Rate mL/min (>60) Glucose Level 113 mg/dL (74-106) H Calcium Level 8.7 mg/dL (8.6-10.2) Phosphorus Level 3.7 mg/dL (2.5-4.8) Albumin 2.8 g/dL (3.5-5.2) L Microbiology Date/Time Source Procedure Growth Status 09/13/16 20:30 Blood Blood Culture - Preliminary NO GROWTH AFTER 24 HOURS Resulted 09/13/16 19:40 Blood Blood Culture - Preliminary Resulted Objective HEENT: Atraumatic and normocephalic. Anicteric. Pupils are equal, round, and reactive to light and accommodation. Extraocular muscles are intact. NECK: JVP cannot be assessed in view of the presence of a BiPAP mask. No carotid bruit. CARDIOVASCULAR: Normal S1 and S2. Regular rate and rhythm. No murmurs, gallops, or rubs. PMI is at fourth intercostal space in the midclavicular line. LUNGS: Bibasilar bilateral crackles diffusely. ABDOMEN: Soft, nontender, and nondistended. No hepatosplenomegaly. Positive bowel sounds. EXTREMITIES: No evidence of edema, clubbing, or cyanosis. VILLA ALCANTAR September 15, 2016 23:31
[2016-09-16 00:22] VITALS: BP 110/70
[2016-09-16 04:00] VITALS: BP 105/75
[2016-09-16 05:54] LABS: MEAN CORPUSCULAR HEMOGLOBIN 33.3 PG (27.0-31.0); MEAN CORPUSCULAR HGB CONC 31.7 G/DL (32.0-36.0); MEAN CORPUSCULAR VOLUME 105 FL (80-99); MEAN PLATELET VOLUME 9.3 FL (6.5-10.1); PLATELET COUNT 121 K/UL (150-450); RED BLOOD COUNT 3.89 M/UL (4.70-6.10); RED CELL DISTRIBUTION WIDTH 13.5 % (11.6-14.8); WHITE BLOOD COUNT 11.1 K/UL (4.8-10.8)
[2016-09-16 06:05] LABS: ALANINE AMINOTRANSFERASE 15 U/L (3-41); ALBUMIN/GLOBULIN RATIO 0.8 (1.0-2.7); ANION GAP 13 (5-15); ASPARTATE AMINO TRANSFERASE 17 U/L (5-40); CALCIUM 9.4 mg/dL (8.6-10.2); CARBON DIOXIDE 30 mEQ/L (20-30); CHLORIDE 116 mEQ/L (98-107); CREATININE 1.2 mg/dL (0.7-1.2); HEMOLYSIS 2; POTASSIUM 3.5 mEQ/L (3.4-4.9); SODIUM 159 mEQ/L (135-145)
[2016-09-16 07:59] LABS: BAND NEUTROPHILS % (MANUAL) 1 % (0-8); BASOPHILS % (MANUAL) 0 % (0-2); EOSINOPHILS % (MANUAL) 0 % (0-3); HYPOCHROMASIA 1+; LYMPHOCYTES % (MANUAL) 5 % (20-45); MACROCYTES 1+; NEUTROPHILS % (MANUAL) 90 % (45-75); PLATELET ESTIMATE DECREASED; PLATELET MORPHOLOGY NORMAL; TOTAL CELLS COUNTED 100
[2016-09-16 08:00] VITALS: BP 115/75
[2016-09-16] MEDS: Heparin 5000 units/ml inj SUBQ SCH ×2 (09:17→21:17)
[2016-09-16 09:50] LABS: CORTISOL LC 35.7 ug/dL (.)
[2016-09-16 09:50] LABS: CREATININE RANDOM URINE 54.9 mg/dL (Not Estab.); MICROALBUMIN/CREATININE RATIO <5.5 mg/g creat (0.0-30.0)
[2016-09-16] MEDS: Vancomycin 750 MG in D5W 275 ML IVPB SCH (10:26)
--- NOTE | 2016-09-16 10:50 | Diagnostic Imaging Report ---
Indication: DYSPNEA Technique: One view of the chest Comparison: 09/15/2016 Findings: Patient's chin obscures the upper mediastinum. Bilateral diffuse interstitial disease appears perhaps minimally improved. The heart is borderline enlarged. Aorta is tortuous ectatic and calcified. Again demonstrated is evidence of prior upper lumbar vertebral augmentation procedure Impression: Stable or perhaps minimally improved and still extensive interstitial disease bilaterally.
--- NOTE | 2016-09-16 11:41 | Pulmonology Progress Note ---
Assessment/Plan Problems: (1) Respiratory distress (2) DNR (do not resuscitate) (3) Hypotension (4) Pulmonary fibrosis Assessment/Plan still needs BIPA cxr didn't show any changes titrate fio2 to sat of 92% chest pt f/u electrolytes, cultures bun/creatinine decreasing family meeting to talk about plan of care, Subjective ROS Limited/Unobtainable: Yes Interval Events: awake, still needs BIPAP Allergies: Coded Allergies: PENICILLINS (Verified Allergy, Unknown, 09/13/16) Objective Last 24 Hour Vital Signs Date Time Temp Pulse Resp B/P Pulse Ox O2 Delivery O2 Flow Rate FiO2 09/16/16 11:00 99 30 95 Facial 60 09/16/16 08:54 103 32 94 Facial 60 09/16/16 08:01 96 09/16/16 08:00 97.5 97 23 115/75 98 Bi-pap 60 09/16/16 08:00 60 09/16/16 06:49 96 33 93 Facial 60 09/16/16 05:20 92 24 97 Facial 60 09/16/16 04:00 98.1 103 19 105/75 95 Bi-pap 09/16/16 04:00 60 09/16/16 03:13 103 09/16/16 03:04 104 26 96 Facial 60 09/16/16 01:24 94 28 99 Bi-pap 60 09/16/16 01:23 95 29 96 Bi-pap 60 09/16/16 01:03 103 28 95 Facial 60 09/16/16 00:22 98.2 108 19 110/70 95 Bi-pap 09/16/16 00:00 60 09/15/16 23:30 100 26 95 Facial 60 09/15/16 23:00 100 09/15/16 21:30 94 24 95 Facial 60 09/15/16 20:00 60 09/15/16 20:00 98.4 110 20 101/67 94 Mechanical Ventilator 09/15/16 19:55 90 29 95 Facial 60 09/15/16 19:44 87 09/15/16 16:55 83 20 96 Facial 60 09/15/16 16:27 85 09/15/16 16:00 98.6 90 42 104/59 95 Bi-pap 60 09/15/16 16:00 60 09/15/16 14:59 80 21 96 Facial 60 09/15/16 12:57 84 20 97 Facial 60 09/15/16 12:20 85 09/15/16 12:00 60 09/15/16 12:00 99.1 85 25 100/67 96 Bi-pap 60 Intake and Output 09/15/16 09/16/16 19:00 07:00 Intake Total 275.0 ml Output Total 550 ml 600 ml Balance -275.0 ml -600 ml IV Total 275.0 ml Output Urine Total 550 ml 600 ml # Voids 1 1 General Appearance: WD/WN HEENT: normocephalic, atraumatic Respiratory/Chest: chest wall non-tender, lungs clear Cardiovascular: normal peripheral pulses, normal rate Abdomen: normal bowel sounds, soft, non tender Extremities: no clubbing Neurologic/Psychiatric: dough puncher II-XII grossly normal, no motor/sensory deficits Microbiology Date/Time Source Procedure Growth Status 09/13/16 20:30 Blood Blood Culture - Preliminary NO GROWTH AFTER 48 HOURS Resulted 09/13/16 19:40 Blood Blood Culture - Preliminary Staphylococcus Sp Coag Neg Resulted Laboratory Tests 09/16/16 03:50: White Blood Count 11.1H, Red Blood Count 3.89L, Hemoglobin 12.9L, Hematocrit 40.9L, Mean Corpuscular Volume 105H, Mean Corpuscular Hemoglobin 33.3H, Mean Corpuscular Hemoglobin Concent 31.7L, Red Cell Distribution Width 13.5, Platelet Count 121L, Mean Platelet Volume 9.3, Neutrophils (%) (Auto) , Lymphocytes (%) (Auto) , Monocytes (%) (Auto) , Eosinophils (%) (Auto) , Basophils (%) (Auto) , Differential Total Cells Counted 100, Neutrophils % ( Manual) 90H, Lymphocytes % (Manual) 5L, Monocytes % (Manual) 4, Eosinophils % ( Manual) 0, Basophils % (Manual) 0, Band Neutrophils 1, Platelet Estimate DecreasedL, Platelet Morphology Normal, Hypochromasia 1+, Macrocytosis 1+, Sodium Level 159H, Potassium Level 3.5, Chloride Level 116H, Carbon Dioxide Level 30, Anion Gap 13, Blood Urea Nitrogen 59H, Creatinine 1.2, Estimat Glomerular Filtration Rate , Glucose Level 117H, Calcium Level 9.4, Total Bilirubin 0.7, Aspartate Amino Transf (AST/SGOT) 17, Alanine Aminotransferase ( ALT/SGPT) 15, Alkaline Phosphatase 72, Pro-B-Type Natriuretic Peptide 2067H, Total Protein 6.0L, Albumin 2.8L, Globulin 3.2, Albumin/Globulin Ratio 0.8L Current Medications Medications (Trade) Dose Ordered Sig/Bertrand Route PRN Reason Start Time Stop Time Status Last Admin Dose Admin Acetaminophen (Tylenol) 650 mg Q4H PRN ORAL fever 09/14/16 08:00 10/14/16 07:59 Al Hydroxide/Mg Hydroxide (Mylanta II) 30 ml Q6H PRN ORAL dyspepsia 09/14/16 08:00 10/14/16 07:59 Albuterol/ Ipratropium (DuoNeb 0.5-3(2.5)mg/3ml) 3 ml EVERY 4 HOURS PRN HHN Shortness of Breath 09/14/16 08:00 09/19/16 07:59 09/16/16 01:22 Heparin Sodium (Porcine) (Heparin 5000 units/ml) 5,000 units EVERY 12 HOURS SUBQ 09/14/16 09:00 10/14/16 08:59 09/16/16 09:17 Levofloxacin 100 ml @ 100 mls/hr Q48H IVPB 09/15/16 20:00 09/22/16 19:59 09/15/16 22:23 Lorazepam (Ativan 2mg/ml 1ml) 0.5 mg Q4H PRN IV For Anxiety 09/14/16 17:00 09/21/16 16:59 Nitroglycerin 0.4 mg 0.4 mg Q5M PRN SL Prn Chest Pain 09/14/16 08:00 10/14/16 07:59 Ondansetron HCl (Zofran) 4 mg Q6H PRN IVP Nausea & Vomiting 09/14/16 08:00 10/14/16 07:59 Polyethylene Glycol (Miralax) 17 gm DAILYPRN PRN ORAL Constipation 09/14/16 08:00 10/14/16 07:59 Promethazine HCl/ Codeine (Phenergan with Codeine) 5 ml Q4H PRN ORAL For Cough 09/14/16 08:00 10/14/16 07:59 Temazepam (Restoril) 15 mg HSPRN PRN ORAL Insomnia 09/14/16 08:00 09/21/16 07:59 Vancomycin HCl/ Dextrose (Vancomycin/D5W) 275 ml @ 183.3 mls/ hr Q24H IVPB 09/15/16 11:00 09/20/16 10:59 09/16/16 10:26 MONO PATEL September 16, 2016 11:40
[2016-09-16 12:00] VITALS: BP 110/76
--- NOTE | 2016-09-16 13:06 | General Progress Note ---
Assessment/Plan Problem List: (1) Renal insufficiency ICD Codes: N28.9 - Disorder of kidney and ureter, unspecified SNOMED: 452491643 (2) Pulmonary fibrosis ICD Codes: J84.10 - Pulmonary fibrosis, unspecified SNOMED: 48661562 (3) Respiratory distress ICD Codes: R06.00 - Dyspnea, unspecified SNOMED: 111011191 (4) Hypotension ICD Codes: I95.9 - Hypotension, unspecified SNOMED: 77817986 Status: stable, progressing, tolerating diet Assessment/Plan ot pt diet o2 pulm tx cbc bmp am Subjective Constitutional: Reports: weakness Allergies: Coded Allergies: PENICILLINS (Verified Allergy, Unknown, 09/13/16) All Systems: reviewed and negative except above Subjective bipap in place Objective Last 24 Hour Vital Signs Date Time Temp Pulse Resp B/P Pulse Ox O2 Delivery O2 Flow Rate FiO2 09/16/16 13:00 97 33 96 Facial 60 09/16/16 11:00 99 30 95 Facial 60 09/16/16 08:54 103 32 94 Facial 60 09/16/16 08:01 96 09/16/16 08:00 97.5 97 23 115/75 98 Bi-pap 60 09/16/16 08:00 60 09/16/16 06:49 96 33 93 Facial 60 09/16/16 05:20 92 24 97 Facial 60 09/16/16 04:00 98.1 103 19 105/75 95 Bi-pap 09/16/16 04:00 60 09/16/16 03:13 103 09/16/16 03:04 104 26 96 Facial 60 09/16/16 01:24 94 28 99 Bi-pap 60 09/16/16 01:23 95 29 96 Bi-pap 60 09/16/16 01:03 103 28 95 Facial 60 09/16/16 00:22 98.2 108 19 110/70 95 Bi-pap 09/16/16 00:00 60 09/15/16 23:30 100 26 95 Facial 60 09/15/16 23:00 100 09/15/16 21:30 94 24 95 Facial 60 09/15/16 20:00 60 09/15/16 20:00 98.4 110 20 101/67 94 Mechanical Ventilator 09/15/16 19:55 90 29 95 Facial 60 09/15/16 19:44 87 09/15/16 16:55 83 20 96 Facial 60 09/15/16 16:27 85 09/15/16 16:00 98.6 90 42 104/59 95 Bi-pap 60 09/15/16 16:00 60 09/15/16 14:59 80 21 96 Facial 60 Intake and Output 09/15/16 09/16/16 19:00 07:00 Intake Total 275.0 ml Output Total 550 ml 600 ml Balance -275.0 ml -600 ml IV Total 275.0 ml Output Urine Total 550 ml 600 ml # Voids 1 1 Laboratory Tests 09/16/16 03:50: White Blood Count 11.1H, Red Blood Count 3.89L, Hemoglobin 12.9L, Hematocrit 40.9L, Mean Corpuscular Volume 105H, Mean Corpuscular Hemoglobin 33.3H, Mean Corpuscular Hemoglobin Concent 31.7L, Red Cell Distribution Width 13.5, Platelet Count 121L, Mean Platelet Volume 9.3, Neutrophils (%) (Auto) , Lymphocytes (%) (Auto) , Monocytes (%) (Auto) , Eosinophils (%) (Auto) , Basophils (%) (Auto) , Differential Total Cells Counted 100, Neutrophils % ( Manual) 90H, Lymphocytes % (Manual) 5L, Monocytes % (Manual) 4, Eosinophils % ( Manual) 0, Basophils % (Manual) 0, Band Neutrophils 1, Platelet Estimate DecreasedL, Platelet Morphology Normal, Hypochromasia 1+, Macrocytosis 1+, Sodium Level 159H, Potassium Level 3.5, Chloride Level 116H, Carbon Dioxide Level 30, Anion Gap 13, Blood Urea Nitrogen 59H, Creatinine 1.2, Estimat Glomerular Filtration Rate , Glucose Level 117H, Calcium Level 9.4, Total Bilirubin 0.7, Aspartate Amino Transf (AST/SGOT) 17, Alanine Aminotransferase ( ALT/SGPT) 15, Alkaline Phosphatase 72, Pro-B-Type Natriuretic Peptide 2067H, Total Protein 6.0L, Albumin 2.8L, Globulin 3.2, Albumin/Globulin Ratio 0.8L Height (Feet): 5 Height (Inches): 6.00 Weight (Pounds): 200 General Appearance: lethargic EENT: normal ENT inspection Neck: normal alignment Cardiovascular: normal peripheral pulses, normal rate, regular rhythm Respiratory/Chest: chest wall non-tender, lungs clear, decreased breath sounds Abdomen: normal bowel sounds, non tender, soft Extremities: normal inspection Edema: no edema noted Arm (L), no edema noted Arm (R), no edema noted Leg (L), no edema noted Leg (R), no edema noted Pedal (L), no edema noted Pedal (R), no edema noted Generalized Neurologic: motor weakness Skin: normal pigmentation, warm/dry JACQUIE ROTHMAN September 16, 2016 13:06
--- NOTE | 2016-09-16 13:45 | Nephrology Progress Note ---
Assessment/Plan Assessment 1. Hypernatremia. 2. Acute renal failure. 3. Chronic kidney disease. 4. Chronic respiratory failure. 5. Hypotension. Plan Plan to start ivf replace electrolyte hold diuretic oral hydration monitoring in and out put Subjective Constitutional: Reports: no symptoms HEENT: Reports: no symptoms Genitourinary: Reports: no symptoms Neurologic/Psychiatric: Reports: no symptoms Subjective continue to be on BIPAP C/O SOB Objective Objective Last 24 Hour Vital Signs Date Time Temp Pulse Resp B/P Pulse Ox O2 Delivery O2 Flow Rate FiO2 09/16/16 13:00 97 33 96 Facial 60 09/16/16 11:00 99 30 95 Facial 60 09/16/16 08:54 103 32 94 Facial 60 09/16/16 08:01 96 09/16/16 08:00 97.5 97 23 115/75 98 Bi-pap 60 09/16/16 08:00 60 09/16/16 06:49 96 33 93 Facial 60 09/16/16 05:20 92 24 97 Facial 60 09/16/16 04:00 98.1 103 19 105/75 95 Bi-pap 09/16/16 04:00 60 09/16/16 03:13 103 09/16/16 03:04 104 26 96 Facial 60 09/16/16 01:24 94 28 99 Bi-pap 60 09/16/16 01:23 95 29 96 Bi-pap 60 09/16/16 01:03 103 28 95 Facial 60 09/16/16 00:22 98.2 108 19 110/70 95 Bi-pap 09/16/16 00:00 60 09/15/16 23:30 100 26 95 Facial 60 09/15/16 23:00 100 09/15/16 21:30 94 24 95 Facial 60 09/15/16 20:00 60 09/15/16 20:00 98.4 110 20 101/67 94 Mechanical Ventilator 09/15/16 19:55 90 29 95 Facial 60 09/15/16 19:44 87 09/15/16 16:55 83 20 96 Facial 60 09/15/16 16:27 85 09/15/16 16:00 98.6 90 42 104/59 95 Bi-pap 60 09/15/16 16:00 60 09/15/16 14:59 80 21 96 Facial 60 Intake and Output 09/15/16 09/16/16 18:59 06:59 Intake Total 275.0 ml Output Total 550 ml 600 ml Balance -275.0 ml -600 ml IV Total 275.0 ml Output Urine Total 550 ml 600 ml # Voids 1 1 Laboratory Tests 09/16/16 03:50: White Blood Count 11.1H, Red Blood Count 3.89L, Hemoglobin 12.9L, Hematocrit 40.9L, Mean Corpuscular Volume 105H, Mean Corpuscular Hemoglobin 33.3H, Mean Corpuscular Hemoglobin Concent 31.7L, Red Cell Distribution Width 13.5, Platelet Count 121L, Mean Platelet Volume 9.3, Neutrophils (%) (Auto) , Lymphocytes (%) (Auto) , Monocytes (%) (Auto) , Eosinophils (%) (Auto) , Basophils (%) (Auto) , Differential Total Cells Counted 100, Neutrophils % ( Manual) 90H, Lymphocytes % (Manual) 5L, Monocytes % (Manual) 4, Eosinophils % ( Manual) 0, Basophils % (Manual) 0, Band Neutrophils 1, Platelet Estimate DecreasedL, Platelet Morphology Normal, Hypochromasia 1+, Macrocytosis 1+, Sodium Level 159H, Potassium Level 3.5, Chloride Level 116H, Carbon Dioxide Level 30, Anion Gap 13, Blood Urea Nitrogen 59H, Creatinine 1.2, Estimat Glomerular Filtration Rate , Glucose Level 117H, Calcium Level 9.4, Total Bilirubin 0.7, Aspartate Amino Transf (AST/SGOT) 17, Alanine Aminotransferase ( ALT/SGPT) 15, Alkaline Phosphatase 72, Pro-B-Type Natriuretic Peptide 2067H, Total Protein 6.0L, Albumin 2.8L, Globulin 3.2, Albumin/Globulin Ratio 0.8L Height (Feet): 5 Height (Inches): 6.00 Weight (Pounds): 200 Objective HEAD AND NECK: No JVP. No LAD. No thyromegaly. Extraocular movement intact. Pupils are reactive to light and accommodation. LUNGS: He has diffuse rhonchi. CARDIAC: Regular rate and rhythm. S1-S2. No murmur. No rub. ABDOMEN: Soft, nontender, and nondistended. EXTREMITIES: No edema. No clubbing. No cyanosis. MANISHA PATEL September 16, 2016 13:45
--- NOTE | 2016-09-16 14:51 | Wound Care Consultation ---
Wound Assessment Wound Assessment : Wound Present on Admission: No New Wound: Yes Status Change of Wound: No Wound Location Body Site Modif: mid Wound Location Body Site: other - Sacrococcygeal Wound Type: pressure ulcer Mariah Test: Does not Mariah Pressure Ulcer Stage: deep tissue injury - suspected Wound Thickness: Full Thickness Wound Length: 4.5 Wound Width: 5.5 Wound Depth: utd Percent of Wound Purple/Maroon: 100 Wound Drainage Amount: None Wound Drainage Odor: None/Absent Tissue Surrounding Wound: Intact Wound General Appearance: Reddened Wound Comment #1 Sacrococcygeal SDTI pressure ulcer Recommendation -Local wound care per protocol -Keep clean and dry -Turn and reposition -Low air loss overlay mattress -Optimize nutrition -Offload both heels -Heel protector on both heels -Assess and f/u accordingly for any changes MELANIE LR RN September 16, 2016 14:51
[2016-09-16] MEDS ORDERED: Vancomycin 500mg/D5W 110ml IVPB ONE ×2 (15:00)
--- NOTE | 2016-09-16 15:27 | Infectious Diseases Prog Note ---
Assessment/Plan Problems: (1) Pneumonia Assessment & Plan: await sputum culture, continue vancomycin and levofloxacin empiric therapy, monitor CXR. recommend CT chest when stable for further evaluation (2) Pulmonary fibrosis Assessment & Plan: chronic, continue oxygen and bronchodialators as need, pulmonary is following (3) Respiratory distress Assessment & Plan: due to the above, on BIPAP, titrate oxygen as needed (4) Hypotension Assessment & Plan: rule out sepsis, improving, continue vancomycin and levaquin , blood culture showed coag negative staph in one bottle, most likely contaminant. Subjective ROS Limited/Unobtainable: Yes Allergies: Coded Allergies: PENICILLINS (Verified Allergy, Unknown, 09/13/16) Subjective he is still on BIPAP, had mild SOB, and cough, no fever or chills, no skin rash Objective Vital Signs Last 24 Hour Vital Signs Date Time Temp Pulse Resp B/P Pulse Ox O2 Delivery O2 Flow Rate FiO2 09/16/16 14:36 93 32 95 Facial 60 09/16/16 13:00 97 33 96 Facial 60 09/16/16 12:00 60 09/16/16 11:00 99 30 95 Facial 60 09/16/16 08:54 103 32 94 Facial 60 09/16/16 08:01 96 09/16/16 08:00 97.5 97 23 115/75 98 Bi-pap 60 09/16/16 08:00 60 09/16/16 06:49 96 33 93 Facial 60 09/16/16 05:20 92 24 97 Facial 60 09/16/16 04:00 98.1 103 19 105/75 95 Bi-pap 09/16/16 04:00 60 09/16/16 03:13 103 09/16/16 03:04 104 26 96 Facial 60 09/16/16 01:24 94 28 99 Bi-pap 60 09/16/16 01:23 95 29 96 Bi-pap 60 09/16/16 01:03 103 28 95 Facial 60 09/16/16 00:22 98.2 108 19 110/70 95 Bi-pap 09/16/16 00:00 60 09/15/16 23:30 100 26 95 Facial 60 09/15/16 23:00 100 09/15/16 21:30 94 24 95 Facial 60 09/15/16 20:00 60 09/15/16 20:00 98.4 110 20 101/67 94 Mechanical Ventilator 09/15/16 19:55 90 29 95 Facial 60 09/15/16 19:44 87 09/15/16 16:55 83 20 96 Facial 60 09/15/16 16:27 85 09/15/16 16:00 98.6 90 42 104/59 95 Bi-pap 60 09/15/16 16:00 60 Height (Feet): 5 Height (Inches): 6.00 Weight (Pounds): 200 General Appearance: WD/WN, no acute distress HEENT: normocephalic, atraumatic, anicteric, mucous membranes moist Respiratory/Chest: chest wall non-tender, lungs clear, normal breath sounds, no respiratory distress, no accessory muscle use Cardiovascular: normal peripheral pulses, normal rate, regular rhythm, no gallop/murmur Abdomen: normal bowel sounds, soft, non tender, non distended, no mass Extremities: no cyanosis, no clubbing Skin: no rash, no lesions Microbiology Date/Time Source Procedure Growth Status 09/13/16 20:30 Blood Blood Culture - Preliminary NO GROWTH AFTER 48 HOURS Resulted 09/13/16 19:40 Blood Blood Culture - Preliminary Staphylococcus Sp Coag Neg Resulted Laboratory Tests Test 09/16/16 03:50 White Blood Count 11.1 K/UL (4.8-10.8) H Red Blood Count 3.89 M/UL (4.70-6.10) L Hemoglobin 12.9 G/DL (14.2-18.0) L Hematocrit 40.9 % (42.0-52.0) L Mean Corpuscular Volume 105 FL (80-99) H Mean Corpuscular Hemoglobin 33.3 PG (27.0-31.0) H Mean Corpuscular Hemoglobin Concent 31.7 G/DL (32.0-36.0) L Red Cell Distribution Width 13.5 % (11.6-14.8) Platelet Count 121 K/UL (150-450) L Mean Platelet Volume 9.3 FL (6.5-10.1) Neutrophils (%) (Auto) % (45.0-75.0) Lymphocytes (%) (Auto) % (20.0-45.0) Monocytes (%) (Auto) % (1.0-10.0) Eosinophils (%) (Auto) % (0.0-3.0) Basophils (%) (Auto) % (0.0-2.0) Differential Total Cells Counted 100 Neutrophils % (Manual) 90 % (45-75) H Lymphocytes % (Manual) 5 % (20-45) L Monocytes % (Manual) 4 % (1-10) Eosinophils % (Manual) 0 % (0-3) Basophils % (Manual) 0 % (0-2) Band Neutrophils 1 % (0-8) Platelet Estimate Decreased L Platelet Morphology Normal Hypochromasia 1+ Macrocytosis 1+ Sodium Level 159 mEQ/L (135-145) H Potassium Level 3.5 mEQ/L (3.4-4.9) Chloride Level 116 mEQ/L (98-107) H Carbon Dioxide Level 30 mEQ/L (20-30) Anion Gap 13 (5-15) Blood Urea Nitrogen 59 mg/dL (7-23) H Creatinine 1.2 mg/dL (0.7-1.2) Estimat Glomerular Filtration Rate mL/min (>60) Glucose Level 117 mg/dL (74-106) H Calcium Level 9.4 mg/dL (8.6-10.2) Total Bilirubin 0.7 mg/dL (0.0-1.2) Aspartate Amino Transf (AST/SGOT) 17 U/L (5-40) Alanine Aminotransferase (ALT/SGPT) 15 U/L (3-41) Alkaline Phosphatase 72 U/L (40-129) Pro-B-Type Natriuretic Peptide 2067 pg/mL (0-450) H Total Protein 6.0 g/dL (6.6-8.7) L Albumin 2.8 g/dL (3.5-5.2) L Globulin 3.2 g/dL Albumin/Globulin Ratio 0.8 (1.0-2.7) L Current Medications Medications (Trade) Dose Ordered Sig/Bertrand Route PRN Reason Start Time Stop Time Status Last Admin Dose Admin Acetaminophen (Tylenol) 650 mg Q4H PRN ORAL fever 09/14/16 08:00 10/14/16 07:59 Al Hydroxide/Mg Hydroxide (Mylanta II) 30 ml Q6H PRN ORAL dyspepsia 09/14/16 08:00 10/14/16 07:59 Albuterol/ Ipratropium (DuoNeb 0.5-3(2.5)mg/3ml) 3 ml EVERY 4 HOURS PRN HHN Shortness of Breath 09/14/16 08:00 09/19/16 07:59 09/16/16 01:22 Dextrose (D5W 500ml) 500 ml @ 30 mls/hr ONCE ONCE IV 09/16/16 14:00 09/17/16 06:39 09/16/16 14:44 Heparin Sodium (Porcine) (Heparin 5000 units/ml) 5,000 units EVERY 12 HOURS SUBQ 09/14/16 09:00 10/14/16 08:59 09/16/16 09:17 Levofloxacin (Levaquin) 100 ml @ 100 mls/hr Q48H IVPB 09/15/16 20:00 09/22/16 19:59 09/15/16 22:23 Lorazepam (Ativan 2mg/ml 1ml) 0.5 mg Q4H PRN IV For Anxiety 09/14/16 17:00 09/21/16 16:59 Nitroglycerin 0.4 mg 0.4 mg Q5M PRN SL Prn Chest Pain 09/14/16 08:00 10/14/16 07:59 Ondansetron HCl (Zofran) 4 mg Q6H PRN IVP Nausea & Vomiting 09/14/16 08:00 10/14/16 07:59 Polyethylene Glycol (Miralax) 17 gm DAILYPRN PRN ORAL Constipation 09/14/16 08:00 10/14/16 07:59 Promethazine HCl/ Codeine (Phenergan with Codeine) 5 ml Q4H PRN ORAL For Cough 09/14/16 08:00 10/14/16 07:59 Temazepam (Restoril) 15 mg HSPRN PRN ORAL Insomnia 09/14/16 08:00 09/21/16 07:59 Vancomycin HCl 500 mg/Dextrose 110 ml @ 110 mls/hr ONCE ONCE IVPB 09/16/16 15:00 09/16/16 15:59 09/16/16 14:48 Vancomycin HCl 1 ea 1 ea DAILY PRN MISC . 09/16/16 13:00 10/16/16 12:59 Vancomycin HCl 1 gm/Dextrose 275 ml @ 183.708 mls/hr Q24H IVPB 5/4/17 15:00 09/22/16 14:59 Ralf Jaramillo M.D. September 16, 2016 15:27
[2016-09-16 16:00] VITALS: BP 122/73
--- NOTE | 2016-09-16 18:26 | General Progress Note ---
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 SNOMED: 113606001 (2) Respiratory distress ICD Codes: R06.00 - Dyspnea, unspecified SNOMED: 160731146 (3) Pulmonary fibrosis ICD Codes: J84.10 - Pulmonary fibrosis, unspecified SNOMED: 94383800 (4) Hypotension ICD Codes: I95.9 - Hypotension, unspecified SNOMED: 45510904 (5) Renal insufficiency ICD Codes: N28.9 - Disorder of kidney and ureter, unspecified SNOMED: 106506742 (6) Pneumonia ICD Codes: J18.9 - Pneumonia, unspecified organism SNOMED: 549263532 Assessment/Plan abnormal thyroid function is most likely due to state on illness no need for thyroid hormone replacement Subjective ROS Limited/Unobtainable: Yes Allergies: Coded Allergies: PENICILLINS (Verified Allergy, Unknown, 09/13/16) Subjective on bipap Objective Last 24 Hour Vital Signs Date Time Temp Pulse Resp B/P Pulse Ox O2 Delivery O2 Flow Rate FiO2 09/16/16 17:01 96 30 96 Facial 60 09/16/16 14:36 93 32 95 Facial 60 09/16/16 13:00 97 33 96 Facial 60 09/16/16 12:00 60 09/16/16 11:00 99 30 95 Facial 60 09/16/16 08:54 103 32 94 Facial 60 09/16/16 08:01 96 09/16/16 08:00 97.5 97 23 115/75 98 Bi-pap 60 09/16/16 08:00 60 09/16/16 06:49 96 33 93 Facial 60 09/16/16 05:20 92 24 97 Facial 60 09/16/16 04:00 98.1 103 19 105/75 95 Bi-pap 09/16/16 04:00 60 09/16/16 03:13 103 09/16/16 03:04 104 26 96 Facial 60 09/16/16 01:24 94 28 99 Bi-pap 60 09/16/16 01:23 95 29 96 Bi-pap 60 09/16/16 01:03 103 28 95 Facial 60 09/16/16 00:22 98.2 108 19 110/70 95 Bi-pap 09/16/16 00:00 60 09/15/16 23:30 100 26 95 Facial 60 09/15/16 23:00 100 09/15/16 21:30 94 24 95 Facial 60 09/15/16 20:00 60 09/15/16 20:00 98.4 110 20 101/67 94 Mechanical Ventilator 09/15/16 19:55 90 29 95 Facial 60 09/15/16 19:44 87 Intake and Output 09/15/16 09/16/16 19:00 07:00 Intake Total 275.0 ml Output Total 550 ml 600 ml Balance -275.0 ml -600 ml IV Total 275.0 ml Output Urine Total 550 ml 600 ml # Voids 1 1 Laboratory Tests 09/16/16 03:50: White Blood Count 11.1H, Red Blood Count 3.89L, Hemoglobin 12.9L, Hematocrit 40.9L, Mean Corpuscular Volume 105H, Mean Corpuscular Hemoglobin 33.3H, Mean Corpuscular Hemoglobin Concent 31.7L, Red Cell Distribution Width 13.5, Platelet Count 121L, Mean Platelet Volume 9.3, Neutrophils (%) (Auto) , Lymphocytes (%) (Auto) , Monocytes (%) (Auto) , Eosinophils (%) (Auto) , Basophils (%) (Auto) , Differential Total Cells Counted 100, Neutrophils % ( Manual) 90H, Lymphocytes % (Manual) 5L, Monocytes % (Manual) 4, Eosinophils % ( Manual) 0, Basophils % (Manual) 0, Band Neutrophils 1, Platelet Estimate DecreasedL, Platelet Morphology Normal, Hypochromasia 1+, Macrocytosis 1+, Sodium Level 159H, Potassium Level 3.5, Chloride Level 116H, Carbon Dioxide Level 30, Anion Gap 13, Blood Urea Nitrogen 59H, Creatinine 1.2, Estimat Glomerular Filtration Rate , Glucose Level 117H, Calcium Level 9.4, Total Bilirubin 0.7, Aspartate Amino Transf (AST/SGOT) 17, Alanine Aminotransferase ( ALT/SGPT) 15, Alkaline Phosphatase 72, Pro-B-Type Natriuretic Peptide 2067H, Total Protein 6.0L, Albumin 2.8L, Globulin 3.2, Albumin/Globulin Ratio 0.8L Height (Feet): 5 Height (Inches): 6.00 Weight (Pounds): 200 General Appearance: no apparent distress Neck: normal alignment Cardiovascular: normal rate Respiratory/Chest: decreased breath sounds Abdomen: normal bowel sounds Edema: 1+ Arm (L), 1+ Arm (R), 1+ Leg (L), 1+ Leg (R), 1+ Pedal (L), 1+ Pedal ( R), 1+ Generalized Objective Current Medications Medications (Trade) Dose Ordered Sig/Bertrand Route PRN Reason Start Time Stop Time Status Last Admin Dose Admin Acetaminophen (Tylenol) 650 mg Q4H PRN ORAL fever 09/14/16 08:00 10/14/16 07:59 Al Hydroxide/Mg Hydroxide (Mylanta II) 30 ml Q6H PRN ORAL dyspepsia 09/14/16 08:00 10/14/16 07:59 Albuterol/ Ipratropium (DuoNeb 0.5-3(2.5)mg/3ml) 3 ml EVERY 4 HOURS PRN HHN Shortness of Breath 09/14/16 08:00 09/19/16 07:59 09/16/16 01:22 Dextrose (D5W 500ml) 500 ml @ 30 mls/hr ONCE ONCE IV 09/16/16 14:00 09/17/16 06:39 09/16/16 14:44 Heparin Sodium (Porcine) (Heparin 5000 units/ml) 5,000 units EVERY 12 HOURS SUBQ 09/14/16 09:00 10/14/16 08:59 09/16/16 09:17 Levofloxacin (Levaquin) 100 ml @ 100 mls/hr Q48H IVPB 09/15/16 20:00 09/22/16 19:59 09/15/16 22:23 Lorazepam (Ativan 2mg/ml 1ml) 0.5 mg Q4H PRN IV For Anxiety 09/14/16 17:00 09/21/16 16:59 Nitroglycerin 0.4 mg 0.4 mg Q5M PRN SL Prn Chest Pain 09/14/16 08:00 10/14/16 07:59 Ondansetron HCl (Zofran) 4 mg Q6H PRN IVP Nausea & Vomiting 09/14/16 08:00 10/14/16 07:59 Polyethylene Glycol (Miralax) 17 gm DAILYPRN PRN ORAL Constipation 09/14/16 08:00 10/14/16 07:59 Promethazine HCl/ Codeine (Phenergan with Codeine) 5 ml Q4H PRN ORAL For Cough 09/14/16 08:00 10/14/16 07:59 Temazepam (Restoril) 15 mg HSPRN PRN ORAL Insomnia 09/14/16 08:00 09/21/16 07:59 Vancomycin HCl 1 ea 1 ea DAILY PRN MISC . 09/16/16 13:00 10/16/16 12:59 Vancomycin HCl 1 gm/Dextrose 275 ml @ 183.708 mls/hr Q24H IVPB 09/17/16 15:00 09/22/16 14:59 Item Value Date Time Glucose Level 117 mg/dL H 09/16/16 0350 JESSIE VASQUEZ September 16, 2016 18:26
[2016-09-16 20:00] VITALS: BP 110/66
--- NOTE | 2016-09-16 23:37 | Cardiology Progress Note ---
Assessment/Plan Assessment/Plan 1. Dyspnea most likely underlying chronic interstitial lung disease/pulmonary fibrosis. Normal LVEF by echocardiogram. 2. Mild 3. Severe pulmonary HtN. 4. Diabetes mellitus. 5. History of hypertension. 6. TYESHA Subjective Subjective Sinus rhythm at 96. Objective Last 24 Hour Vital Signs Date Time Temp Pulse Resp B/P Pulse Ox O2 Delivery O2 Flow Rate FiO2 09/16/16 21:20 96 36 95 Facial 60 09/16/16 20:16 60 09/16/16 20:00 92 09/16/16 20:00 97.5 95 20 110/66 92 Bi-pap 60 09/16/16 19:00 96 43 95 Facial 60 09/16/16 17:01 96 30 96 Facial 60 09/16/16 16:00 60 09/16/16 16:00 94 09/16/16 16:00 98.2 94 23 122/73 93 Bi-pap 60 09/16/16 14:36 93 32 95 Facial 60 09/16/16 13:00 97 33 96 Facial 60 09/16/16 12:00 60 09/16/16 12:00 98.1 102 36 110/76 95 Bi-pap 60 09/16/16 11:00 99 30 95 Facial 60 09/16/16 08:54 103 32 94 Facial 60 09/16/16 08:01 96 09/16/16 08:00 97.5 97 23 115/75 98 Bi-pap 60 09/16/16 08:00 60 09/16/16 06:49 96 33 93 Facial 60 09/16/16 05:20 92 24 97 Facial 60 09/16/16 04:00 98.1 103 19 105/75 95 Bi-pap 09/16/16 04:00 60 09/16/16 03:13 103 09/16/16 03:04 104 26 96 Facial 60 09/16/16 01:24 94 28 99 Bi-pap 60 09/16/16 01:23 95 29 96 Bi-pap 60 09/16/16 01:03 103 28 95 Facial 60 09/16/16 00:22 98.2 108 19 110/70 95 Bi-pap 09/16/16 00:00 60 Intake and Output 09/15/16 09/16/16 19:00 07:00 Intake Total 275.0 ml Output Total 550 ml 600 ml Balance -275.0 ml -600 ml IV Total 275.0 ml Output Urine Total 550 ml 600 ml # Voids 1 1 2D Echo: EF 55%, Mild /AR, small pericardial effusion, RVSP 64 mmHg Laboratory Tests Test 09/16/16 03:50 White Blood Count 11.1 K/UL (4.8-10.8) H Red Blood Count 3.89 M/UL (4.70-6.10) L Hemoglobin 12.9 G/DL (14.2-18.0) L Hematocrit 40.9 % (42.0-52.0) L Mean Corpuscular Volume 105 FL (80-99) H Mean Corpuscular Hemoglobin 33.3 PG (27.0-31.0) H Mean Corpuscular Hemoglobin Concent 31.7 G/DL (32.0-36.0) L Red Cell Distribution Width 13.5 % (11.6-14.8) Platelet Count 121 K/UL (150-450) L Mean Platelet Volume 9.3 FL (6.5-10.1) Neutrophils (%) (Auto) % (45.0-75.0) Lymphocytes (%) (Auto) % (20.0-45.0) Monocytes (%) (Auto) % (1.0-10.0) Eosinophils (%) (Auto) % (0.0-3.0) Basophils (%) (Auto) % (0.0-2.0) Differential Total Cells Counted 100 Neutrophils % (Manual) 90 % (45-75) H Lymphocytes % (Manual) 5 % (20-45) L Monocytes % (Manual) 4 % (1-10) Eosinophils % (Manual) 0 % (0-3) Basophils % (Manual) 0 % (0-2) Band Neutrophils 1 % (0-8) Platelet Estimate Decreased L Platelet Morphology Normal Hypochromasia 1+ Macrocytosis 1+ Sodium Level 159 mEQ/L (135-145) H Potassium Level 3.5 mEQ/L (3.4-4.9) Chloride Level 116 mEQ/L (98-107) H Carbon Dioxide Level 30 mEQ/L (20-30) Anion Gap 13 (5-15) Blood Urea Nitrogen 59 mg/dL (7-23) H Creatinine 1.2 mg/dL (0.7-1.2) Estimat Glomerular Filtration Rate mL/min (>60) Glucose Level 117 mg/dL (74-106) H Calcium Level 9.4 mg/dL (8.6-10.2) Total Bilirubin 0.7 mg/dL (0.0-1.2) Aspartate Amino Transf (AST/SGOT) 17 U/L (5-40) Alanine Aminotransferase (ALT/SGPT) 15 U/L (3-41) Alkaline Phosphatase 72 U/L (40-129) Pro-B-Type Natriuretic Peptide 2067 pg/mL (0-450) H Total Protein 6.0 g/dL (6.6-8.7) L Albumin 2.8 g/dL (3.5-5.2) L Globulin 3.2 g/dL Albumin/Globulin Ratio 0.8 (1.0-2.7) L Objective HEENT: Atraumatic and normocephalic. Anicteric. Pupils are equal, round, and reactive to light and accommodation. Extraocular muscles are intact. NECK: JVP cannot be assessed in view of the presence of a BiPAP mask. No carotid bruit. CARDIOVASCULAR: Normal S1 and S2. Regular rate and rhythm. No murmurs, gallops, or rubs. PMI is at fourth intercostal space in the midclavicular line. LUNGS: Bibasilar bilateral crackles diffusely. ABDOMEN: Soft, nontender, and nondistended. No hepatosplenomegaly. Positive bowel sounds. EXTREMITIES: No evidence of edema, clubbing, or cyanosis. VILLA ALCANTAR September 16, 2016 23:37
[2016-09-17] VITALS: BP 118/71
[2016-09-17 03:47] LABS: MEAN CORPUSCULAR HEMOGLOBIN 33.9 PG (27.0-31.0); MEAN CORPUSCULAR HGB CONC 32.1 G/DL (32.0-36.0); MEAN CORPUSCULAR VOLUME 105 FL (80-99); MEAN PLATELET VOLUME 7.6 FL (6.5-10.1); PLATELET COUNT 118 K/UL (150-450); RED BLOOD COUNT 3.86 M/UL (4.70-6.10); RED CELL DISTRIBUTION WIDTH 13.6 % (11.6-14.8); WHITE BLOOD COUNT 11.2 K/UL (4.8-10.8)
[2016-09-17 04:00] VITALS: BP 123/86
[2016-09-17 04:16] LABS: ANION GAP 11 (5-15); CALCIUM 9.6 mg/dL (8.6-10.2); CARBON DIOXIDE 32 mEQ/L (20-30); CHLORIDE 120 mEQ/L (98-107); HEMOLYSIS 6; POTASSIUM 3.6 mEQ/L (3.4-4.9)
[2016-09-17 04:27] LABS: SODIUM 163 mEQ/L (135-145)
[2016-09-17 08:00] VITALS: BP 130/81
[2016-09-17 08:37] LABS: ANISOCYTOSIS 1+; BAND NEUTROPHILS % (MANUAL) 0 % (0-8); BASOPHILS % (MANUAL) 0 % (0-2); EOSINOPHILS % (MANUAL) 0 % (0-3); LYMPHOCYTES % (MANUAL) 12 % (20-45); MACROCYTES 1+; NEUTROPHILS % (MANUAL) 86 % (45-75); PLATELET ESTIMATE DECREASED; PLATELET MORPHOLOGY NORMAL; TOTAL CELLS COUNTED 100
[2016-09-17] MEDS: Heparin 5000 units/ml inj SUBQ SCH (09:14)
[2016-09-17] MEDS ORDERED: Morphine Sulfate 2mg/ml Inj IV PRN (12:00)
[2016-09-17] MEDS ORDERED: Morphine Sulfate 4mg/ml Inj IV PRN ×2 (12:05→16:15)
[2016-09-17 12:08] VITALS: BP 106/77
--- NOTE | 2016-09-17 12:15 | Pulmonology Progress Note ---
Assessment/Plan Problems: (1) Respiratory distress (2) DNR (do not resuscitate) (3) Hypotension (4) Pulmonary fibrosis Assessment/Plan still on BIPAp for day 4 not improving I talked to DPOA, pts daughter Marsha who doesn't want any respirator or intubation or any other life-sustaining measures. she knows that without intubating the patient, he could pass away within a few minutes. Subjective ROS Limited/Unobtainable: No Interval Events: still on bipap Allergies: Coded Allergies: PENICILLINS (Verified Allergy, Unknown, 09/13/16) Objective Last 24 Hour Vital Signs Date Time Temp Pulse Resp B/P Pulse Ox O2 Delivery O2 Flow Rate FiO2 09/17/16 10:41 99 38 95 Full Face 80 09/17/16 09:15 97 39 96 Full Face 80 09/17/16 08:00 97.8 104 37 130/81 95 Bi-pap 80 09/17/16 08:00 80 09/17/16 06:33 98 37 95 Full Face 80 09/17/16 04:36 92 36 97 Full Face 80 09/17/16 04:00 80 09/17/16 04:00 98.4 104 20 123/86 96 Bi-pap 80 09/17/16 04:00 97 09/17/16 03:00 96 37 98 Full Face 80 09/17/16 01:21 98 38 98 Full Face 80 09/17/16 00:02 60 09/17/16 00:00 97.3 110 20 118/71 98 Bi-pap 60 09/17/16 00:00 99 09/16/16 23:05 96 32 96 Facial 60 09/16/16 21:20 96 36 95 Facial 60 09/16/16 20:16 60 09/16/16 20:00 92 09/16/16 20:00 97.5 95 20 110/66 92 Bi-pap 60 09/16/16 19:00 96 43 95 Facial 60 09/16/16 17:01 96 30 96 Facial 60 09/16/16 16:00 60 09/16/16 16:00 94 09/16/16 16:00 98.2 94 23 122/73 93 Bi-pap 60 09/16/16 14:36 93 32 95 Facial 60 09/16/16 13:00 97 33 96 Facial 60 Intake and Output 09/16/16 09/17/16 19:00 07:00 Intake Total 120 ml 240 ml Output Total 500 ml 700 ml Balance -380 ml -460 ml IV Total 120 ml 240 ml Output Urine Total 500 ml 700 ml General Appearance: WD/WN HEENT: normocephalic, atraumatic Respiratory/Chest: chest wall non-tender, lungs clear Cardiovascular: normal peripheral pulses, normal rate Abdomen: normal bowel sounds, soft, non tender Extremities: no cyanosis, no clubbing Skin: no lesions 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, no motor/sensory deficits Lymphatic: no neck adenopathy, no groin adenopathy Laboratory Tests 09/17/16 02:50: White Blood Count 11.2H, Red Blood Count 3.86L, Hemoglobin 13.1L, Hematocrit 40.7L, Mean Corpuscular Volume 105H, Mean Corpuscular Hemoglobin 33.9H, Mean Corpuscular Hemoglobin Concent 32.1, Red Cell Distribution Width 13.6, Platelet Count 118L, Mean Platelet Volume 7.6, Neutrophils (%) (Auto) , Lymphocytes (%) ( Auto) , Monocytes (%) (Auto) , Eosinophils (%) (Auto) , Basophils (%) (Auto) , Differential Total Cells Counted 100, Neutrophils % (Manual) 86H, Lymphocytes % (Manual) 12L, Monocytes % (Manual) 2, Eosinophils % (Manual) 0, Basophils % ( Manual) 0, Band Neutrophils 0, Platelet Estimate DecreasedL, Platelet Morphology Normal, Anisocytosis 1+, Macrocytosis 1+, Sodium Level 163*H, Potassium Level 3.6, Chloride Level 120H, Carbon Dioxide Level 32H, Anion Gap 11 , Blood Urea Nitrogen 49H, Creatinine 1.0, Estimat Glomerular Filtration Rate , Glucose Level 153H, Calcium Level 9.6 Current Medications Medications (Trade) Dose Ordered Sig/Bertrand Route PRN Reason Start Time Stop Time Status Last Admin Dose Admin Acetaminophen (Tylenol) 650 mg Q4H PRN ORAL fever 09/14/16 08:00 10/14/16 07:59 Al Hydroxide/Mg Hydroxide (Mylanta II) 30 ml Q6H PRN ORAL dyspepsia 09/14/16 08:00 10/14/16 07:59 Albuterol/ Ipratropium (DuoNeb 0.5-3(2.5)mg/3ml) 3 ml EVERY 4 HOURS PRN HHN Shortness of Breath 09/14/16 08:00 09/19/16 07:59 09/16/16 01:22 Heparin Sodium (Porcine) (Heparin 5000 units/ml) 5,000 units EVERY 12 HOURS SUBQ 09/14/16 09:00 10/14/16 08:59 09/17/16 09:14 Levofloxacin (Levaquin) 100 ml @ 100 mls/hr Q48H IVPB 09/15/16 20:00 09/22/16 19:59 09/15/16 22:23 Lorazepam (Ativan 2mg/ml 1ml) 0.5 mg Q4H PRN IV For Anxiety 09/14/16 17:00 09/21/16 16:59 Nitroglycerin 0.4 mg 0.4 mg Q5M PRN SL Prn Chest Pain 09/14/16 08:00 10/14/16 07:59 Ondansetron HCl (Zofran) 4 mg Q6H PRN IVP Nausea & Vomiting 09/14/16 08:00 10/14/16 07:59 Polyethylene Glycol (Miralax) 17 gm DAILYPRN PRN ORAL Constipation 09/14/16 08:00 10/14/16 07:59 Promethazine HCl/ Codeine (Phenergan with Codeine) 5 ml Q4H PRN ORAL For Cough 09/14/16 08:00 10/14/16 07:59 Temazepam (Restoril) 15 mg HSPRN PRN ORAL Insomnia 09/14/16 08:00 09/21/16 07:59 Vancomycin HCl 1 ea 1 ea DAILY PRN MISC . 09/16/16 13:00 10/16/16 12:59 Vancomycin HCl/ Dextrose (Vancomycin/D5W) 275 ml @ 183.708 mls/hr Q24H IVPB 09/17/16 15:00 09/22/16 14:59 MONO PATEL September 17, 2016 12:15
[2016-09-17] MEDS ORDERED: LORazepam Inj 2mg/ml 1ml IV PRN ×2 (13:00→17:00)
[2016-09-17] MEDS ORDERED: Vancomycin 1gm/D5W 275ml IVPB SCH ×2 (15:00)
--- NOTE | 2016-09-17 15:00 | General Progress Note ---
Assessment/Plan Problem List: (1) Renal insufficiency ICD Codes: N28.9 - Disorder of kidney and ureter, unspecified SNOMED: 402549164 (2) Pulmonary fibrosis ICD Codes: J84.10 - Pulmonary fibrosis, unspecified SNOMED: 74339189 (3) Respiratory distress ICD Codes: R06.00 - Dyspnea, unspecified SNOMED: 164898340 (4) Hypotension ICD Codes: I95.9 - Hypotension, unspecified SNOMED: 05278747 Status: stable, progressing, tolerating diet Assessment/Plan ot pt diet o2 pulm tx cbc bmp am discussing comfort care w family Subjective Constitutional: Reports: weakness Respiratory: Reports: shortness of breath Allergies: Coded Allergies: PENICILLINS (Verified Allergy, Unknown, 09/13/16) All Systems: reviewed and negative except above Subjective bipap in place Objective Last 24 Hour Vital Signs Date Time Temp Pulse Resp B/P Pulse Ox O2 Delivery O2 Flow Rate FiO2 09/17/16 12:43 105 36 95 09/17/16 12:08 98.1 118 18 106/77 99 Bi-pap 80 09/17/16 12:00 80 09/17/16 10:41 99 38 95 Full Face 80 09/17/16 09:15 97 39 96 Full Face 80 09/17/16 08:00 97.8 104 37 130/81 95 Bi-pap 80 09/17/16 08:00 80 09/17/16 08:00 108 09/17/16 06:33 98 37 95 Full Face 80 09/17/16 04:36 92 36 97 Full Face 80 09/17/16 04:00 80 09/17/16 04:00 98.4 104 20 123/86 96 Bi-pap 80 09/17/16 04:00 97 09/17/16 03:00 96 37 98 Full Face 80 09/17/16 01:21 98 38 98 Full Face 80 09/17/16 00:02 60 09/17/16 00:00 97.3 110 20 118/71 98 Bi-pap 60 09/17/16 00:00 99 09/16/16 23:05 96 32 96 Facial 60 09/16/16 21:20 96 36 95 Facial 60 09/16/16 20:16 60 09/16/16 20:00 92 09/16/16 20:00 97.5 95 20 110/66 92 Bi-pap 60 09/16/16 19:00 96 43 95 Facial 60 09/16/16 17:01 96 30 96 Facial 60 09/16/16 16:00 60 09/16/16 16:00 94 09/16/16 16:00 98.2 94 23 122/73 93 Bi-pap 60 Intake and Output 09/16/16 09/17/16 19:00 07:00 Intake Total 120 ml 270 ml Output Total 500 ml 700 ml Balance -380 ml -430 ml IV Total 120 ml 270 ml Output Urine Total 500 ml 700 ml Laboratory Tests 09/17/16 02:50: White Blood Count 11.2H, Red Blood Count 3.86L, Hemoglobin 13.1L, Hematocrit 40.7L, Mean Corpuscular Volume 105H, Mean Corpuscular Hemoglobin 33.9H, Mean Corpuscular Hemoglobin Concent 32.1, Red Cell Distribution Width 13.6, Platelet Count 118L, Mean Platelet Volume 7.6, Neutrophils (%) (Auto) , Lymphocytes (%) ( Auto) , Monocytes (%) (Auto) , Eosinophils (%) (Auto) , Basophils (%) (Auto) , Differential Total Cells Counted 100, Neutrophils % (Manual) 86H, Lymphocytes % (Manual) 12L, Monocytes % (Manual) 2, Eosinophils % (Manual) 0, Basophils % ( Manual) 0, Band Neutrophils 0, Platelet Estimate DecreasedL, Platelet Morphology Normal, Anisocytosis 1+, Macrocytosis 1+, Sodium Level 163*H, Potassium Level 3.6, Chloride Level 120H, Carbon Dioxide Level 32H, Anion Gap 11 , Blood Urea Nitrogen 49H, Creatinine 1.0, Estimat Glomerular Filtration Rate , Glucose Level 153H, Calcium Level 9.6 Height (Feet): 5 Height (Inches): 6.00 Weight (Pounds): 200 General Appearance: lethargic, confused EENT: normal ENT inspection Neck: normal alignment Cardiovascular: normal peripheral pulses, normal rate, regular rhythm Respiratory/Chest: chest wall non-tender, lungs clear, decreased breath sounds Abdomen: normal bowel sounds, non tender, soft Extremities: normal inspection Edema: no edema noted Arm (L), no edema noted Arm (R), no edema noted Leg (L), no edema noted Leg (R), no edema noted Pedal (L), no edema noted Pedal (R), no edema noted Generalized Neurologic: motor weakness Skin: normal pigmentation, warm/dry JACQUIE ROTHMAN September 17, 2016 15:00
[2016-09-17] MEDS ORDERED: Promethazine/Codeine 5ml UD ORAL PRN (16:00)
[2016-09-17 16:31] VITALS: BP 117/77
[2016-09-17] MEDS ORDERED: DuoNeb 0.5-3(2.5)mg/3ml neb HHN PRN (17:00)
[2016-09-17 20:00] VITALS: BP 85/64
[2016-09-17] MEDS ORDERED: Heparin 5000 units/ml inj SUBQ SCH (21:00)
--- NOTE | 2016-09-17 21:37 | Cardiology Progress Note ---
Assessment/Plan Assessment/Plan 1. Dyspnea most likely underlying chronic interstitial lung disease/pulmonary fibrosis. Normal LVEF by echocardiogram, comfort care, 0n non-rebreather mask. 2. Mild 3. Severe pulmonary HTN. 4. Diabetes mellitus. 5. History of hypertension. 6. TYESHA resolved. 7. Hypernatremia. Subjective Subjective Hypotensive On Non-rebreather mask Sinus tachycardia at 130. Objective Last 24 Hour Vital Signs Date Time Temp Pulse Resp B/P Pulse Ox O2 Delivery O2 Flow Rate FiO2 09/17/16 20:00 98.1 133 28 85/64 79 Non-Rebreather 09/17/16 19:23 Non-Rebreather 15.0 100 09/17/16 19:23 114 18 Non-Rebreather 15.0 100 09/17/16 19:23 95 Non-Rebreather 15.0 100 09/17/16 16:31 98.4 128 23 117/77 89 Non-Rebreather 15.0 09/17/16 13:36 98.1 09/17/16 12:43 105 36 95 09/17/16 12:08 98.1 118 18 106/77 99 Bi-pap 80 09/17/16 12:00 80 09/17/16 10:41 99 38 95 Full Face 80 09/17/16 09:15 97 39 96 Full Face 80 09/17/16 08:00 97.8 104 37 130/81 95 Bi-pap 80 09/17/16 08:00 80 09/17/16 08:00 108 09/17/16 06:33 98 37 95 Full Face 80 09/17/16 04:36 92 36 97 Full Face 80 09/17/16 04:00 80 09/17/16 04:00 98.4 104 20 123/86 96 Bi-pap 80 09/17/16 04:00 97 09/17/16 03:00 96 37 98 Full Face 80 09/17/16 01:21 98 38 98 Full Face 80 09/17/16 00:02 60 09/17/16 00:00 97.3 110 20 118/71 98 Bi-pap 60 09/17/16 00:00 99 09/16/16 23:05 96 32 96 Facial 60 Intake and Output 09/16/16 09/17/16 19:00 07:00 Intake Total 120 ml 270 ml Output Total 500 ml 700 ml Balance -380 ml -430 ml IV Total 120 ml 270 ml Output Urine Total 500 ml 700 ml 2D Echo: EF 55%, Mild /AR, small pericardial effusion, RVSP 64 mmHg Laboratory Tests Test 09/17/16 02:50 White Blood Count 11.2 K/UL (4.8-10.8) H Red Blood Count 3.86 M/UL (4.70-6.10) L Hemoglobin 13.1 G/DL (14.2-18.0) L Hematocrit 40.7 % (42.0-52.0) L Mean Corpuscular Volume 105 FL (80-99) H Mean Corpuscular Hemoglobin 33.9 PG (27.0-31.0) H Mean Corpuscular Hemoglobin Concent 32.1 G/DL (32.0-36.0) Red Cell Distribution Width 13.6 % (11.6-14.8) Platelet Count 118 K/UL (150-450) L Mean Platelet Volume 7.6 FL (6.5-10.1) Neutrophils (%) (Auto) % (45.0-75.0) Lymphocytes (%) (Auto) % (20.0-45.0) Monocytes (%) (Auto) % (1.0-10.0) Eosinophils (%) (Auto) % (0.0-3.0) Basophils (%) (Auto) % (0.0-2.0) Differential Total Cells Counted 100 Neutrophils % (Manual) 86 % (45-75) H Lymphocytes % (Manual) 12 % (20-45) L Monocytes % (Manual) 2 % (1-10) Eosinophils % (Manual) 0 % (0-3) Basophils % (Manual) 0 % (0-2) Band Neutrophils 0 % (0-8) Platelet Estimate Decreased L Platelet Morphology Normal Anisocytosis 1+ Macrocytosis 1+ Sodium Level 163 mEQ/L (135-145) *H Potassium Level 3.6 mEQ/L (3.4-4.9) Chloride Level 120 mEQ/L (98-107) H Carbon Dioxide Level 32 mEQ/L (20-30) H Anion Gap 11 (5-15) Blood Urea Nitrogen 49 mg/dL (7-23) H Creatinine 1.0 mg/dL (0.7-1.2) Estimat Glomerular Filtration Rate mL/min (>60) Glucose Level 153 mg/dL (74-106) H Calcium Level 9.6 mg/dL (8.6-10.2) Objective HEENT: Atraumatic and normocephalic. Anicteric. Pupils are equal, round, and reactive to light and accommodation. Extraocular muscles are intact. NECK: JVP cannot be assessed in view of the presence of a non-rebreather mask. No carotid bruit. CARDIOVASCULAR: Normal S1 and S2. Regular rate and rhythm. No murmurs, gallops, or rubs. PMI is at fourth intercostal space in the midclavicular line. LUNGS: Bibasilar bilateral crackles diffusely. ABDOMEN: Soft, nontender, and nondistended. No hepatosplenomegaly. Positive bowel sounds. EXTREMITIES: No evidence of edema, clubbing, or cyanosis. VILLA ALCANTAR September 17, 2016 21:37
--- NOTE | 2016-09-17 22:10 | Nephrology Progress Note ---
Assessment/Plan Assessment 1. Hypernatremia. 2. Acute renal failure. 3. Chronic kidney disease. 4. Chronic respiratory failure. 5. Hypotension. Plan Plan continue ivf replace electrolyte hold diuretic started on morphine drip comfort care monitoring in and out put Subjective ROS Limited/Unobtainable: Yes Constitutional: Reports: no symptoms HEENT: Reports: no symptoms Genitourinary: Reports: no symptoms Neurologic/Psychiatric: Reports: no symptoms Subjective NAD Objective Objective Last 24 Hour Vital Signs Date Time Temp Pulse Resp B/P Pulse Ox O2 Delivery O2 Flow Rate FiO2 09/17/16 20:00 98.1 133 28 85/64 79 Non-Rebreather 09/17/16 19:23 Non-Rebreather 15.0 100 09/17/16 19:23 114 18 Non-Rebreather 15.0 100 09/17/16 19:23 95 Non-Rebreather 15.0 100 09/17/16 16:31 98.4 128 23 117/77 89 Non-Rebreather 15.0 09/17/16 13:36 98.1 09/17/16 12:43 105 36 95 09/17/16 12:08 98.1 118 18 106/77 99 Bi-pap 80 09/17/16 12:00 80 09/17/16 10:41 99 38 95 Full Face 80 09/17/16 09:15 97 39 96 Full Face 80 09/17/16 08:00 97.8 104 37 130/81 95 Bi-pap 80 09/17/16 08:00 80 09/17/16 08:00 108 09/17/16 06:33 98 37 95 Full Face 80 09/17/16 04:36 92 36 97 Full Face 80 09/17/16 04:00 80 09/17/16 04:00 98.4 104 20 123/86 96 Bi-pap 80 09/17/16 04:00 97 09/17/16 03:00 96 37 98 Full Face 80 09/17/16 01:21 98 38 98 Full Face 80 09/17/16 00:02 60 09/17/16 00:00 97.3 110 20 118/71 98 Bi-pap 60 09/17/16 00:00 99 09/16/16 23:05 96 32 96 Facial 60 Intake and Output 09/16/16 09/17/16 19:00 07:00 Intake Total 120 ml 270 ml Output Total 500 ml 700 ml Balance -380 ml -430 ml IV Total 120 ml 270 ml Output Urine Total 500 ml 700 ml Laboratory Tests 09/17/16 02:50: White Blood Count 11.2H, Red Blood Count 3.86L, Hemoglobin 13.1L, Hematocrit 40.7L, Mean Corpuscular Volume 105H, Mean Corpuscular Hemoglobin 33.9H, Mean Corpuscular Hemoglobin Concent 32.1, Red Cell Distribution Width 13.6, Platelet Count 118L, Mean Platelet Volume 7.6, Neutrophils (%) (Auto) , Lymphocytes (%) ( Auto) , Monocytes (%) (Auto) , Eosinophils (%) (Auto) , Basophils (%) (Auto) , Differential Total Cells Counted 100, Neutrophils % (Manual) 86H, Lymphocytes % (Manual) 12L, Monocytes % (Manual) 2, Eosinophils % (Manual) 0, Basophils % ( Manual) 0, Band Neutrophils 0, Platelet Estimate DecreasedL, Platelet Morphology Normal, Anisocytosis 1+, Macrocytosis 1+, Sodium Level 163*H, Potassium Level 3.6, Chloride Level 120H, Carbon Dioxide Level 32H, Anion Gap 11 , Blood Urea Nitrogen 49H, Creatinine 1.0, Estimat Glomerular Filtration Rate , Glucose Level 153H, Calcium Level 9.6 Height (Feet): 5 Height (Inches): 6.00 Weight (Pounds): 200 Objective HEAD AND NECK: No JVP. No LAD. No thyromegaly. Extraocular movement intact. Pupils are reactive to light and accommodation. LUNGS: He has diffuse rhonchi. CARDIAC: Regular rate and rhythm. S1-S2. No murmur. No rub. ABDOMEN: Soft, nontender, and nondistended. EXTREMITIES: No edema. No clubbing. No cyanosis. MANISHA PATEL September 17, 2016 22:10
[2016-09-18] VITALS: BP 73/51
[2016-09-18 01:00] VITALS: BP 87/59
[2016-09-18 02:00] VITALS: BP 69/51
[2016-09-18] MEDS ORDERED: D5 1/2NS 1000ml IV ONE (03:49)
[2016-09-18] MEDS ORDERED: NS 275ml ONE (03:49)
[2016-09-18] MEDS ORDERED: D5W 550ml IV ONE (03:49)
--- NOTE | 2016-09-21 08:23 | Discharge Summary ---
Discharge Summary Hospital Course Date of Admission Sep 13, 2016 at 21:58 Date of Discharge September 18, 2016 at 03:50 Admitting Diagnosis shortness of breath HPI Aleksandar Steiner is a 86 year old male who was admitted on Sep 13, 2016 at 21:58 for Shortness Of Breath Hospital Course summary #[id number] Discharge Discharge Disposition Patient at 09/18/16 at 03:50 Discharge Diagnoses: Discharge Instructions Discharge Instructions Special Instructions I have been assigned to complete a D/C Summary on this account. I was not involved in the patient management Elena Ann NP (Vanchtein) September 21, 2016 08:23
--- NOTE | 2016-09-22 01:39 | Discharge Summary 2 SIG ---
DATE OF ADMISSION: 09/13/2016 DATE OF DISCHARGE: 09/18/2016 SUMMARY The patient was admitted under Dr. Julian. REASON FOR ADMISSION: The patient is an 86-year-old male, who presented with a history of hypertension, pulmonary fibrosis, chronic obstructive pulmonary disease, [facility] resident, brought to the emergency room with difficulty swallowing. The patient is usually on 4 liters of nasal cannula, however, he was noted to be hypoxemic. The patient was placed on nonrebreathing mask. The patient was noted to have hypotension. Chest x-ray was suggestive of pneumonia. Initially, the patient was placed on the BiPAP with a slight improvement. The patient has a DNR status. The patient had a fever [facility] the [facility] facility. White blood count 10.3. Troponin negative. The patient was given IV fluids, started on empiric antibiotics, and transferred to ICU for further management. Daughter is the durable power of contract attorney at the bedside. Daughter confirmed DNR status. ADMITTING DIAGNOSES: Includes, 1. Acute respiratory failure on chronic respiratory failure. 2. Pulmonary fibrosis. 3. Hypotension. Hospital Stay: The patient was admitted to [facility]. The patient was on BiPAP and then on 100% nonrebreathing mask. No significant improvement. Title I Math Tutor, application development intern, farrowing manager, and ID doctor were all involved in the patient care. The patient was on empiric antibiotics. Sputum culture not collected. Blood culture, one out of four staph coag-negative, possible contaminant. The patient was treated empirically for pneumonia. Chest x-ray without much improvement. Supplemental oxygen via non-rebreathing mask and pulmonary toilet provided. Chest x-ray without improvement. The patient was on mild hydration. Group Social Worker followed. Group Social Worker stopped diuretic since the patient did not appear to be fluid overloaded and in view of his renal function. Creatinine trending down to 1.0. Initially, BUN 91 and creatinine 1.9. On 09/17/2016, BUN 49 and creatinine 1.0. The patient also with evidence of hypernatremia. The patient was on the slow hydration. No significant improvement with sodium. Sodium up to 163 the last one. Blood sugar was managed with sliding scale of insulin. The patient was noted to have abnormal thyroid, noted low TSH, and low free T3. According to the art installer, who was called on a consult, the patient has a euthyroid sick syndrome, which is likely secondary to disease process. No thyroid replacement was necessary. The patient was not improving with the BiPAP and nonrebreathing mask. Title I Math Tutor spoke with the daughter, who confirmed that she with the durable [id number] did not want any respirator or intubation or any other life-sustaining measures. She was aware of the patient's condition. The patient was started on the comfort measure with a morphine drip. The patient was pronounced on 09/18/2016 at 03:50 hours. FINAL DIAGNOSES: Includes, 1. Acute respiratory failure on chronic respiratory failure. 2. Chronic interstitial lung disease/i.e., pulmonary fibrosis. 3. Acute renal failure likely due to dehydration. 4. Hypertension. 5. Diabetes mellitus. 6. History of hypertension. 7. Hypernatremia. 8. Euthyroid sick syndrome. Of note, renal ultrasound was done and revealed normal bilateral kidney echogenicity, no evidence of hydronephrosis, and an enlarged prostate. Frederic Julian D.O. I have been assigned to dictate discharge summary on this account and I was not involved in the patient's management. Elena jaramillomisty N.P. DR: JEANNE JOB#: [id number] CC:
--- NOTE | 2016-09-22 14:40 | Cardiology Report ---
APPROVED REPORT EXAM: Two-dimensional and M-mode echocardiogram with Doppler and color Doppler. INDICATION Shortness of Breath M-Mode DIMENSIONS IVSd0.9 (0.7-1.1cm)Left Atrium (MM)5.5 (1.6-4.0cm) LVDd4.2 (3.5-5.6cm)Aortic Root2.8 (2.0-3.7cm) PWd1.3 (0.7-1.1cm)Aortic Cusp Exc.1.6 (1.5-2.0cm) LVDs1.7 (2.5-4.0cm) PWs2.0 cm Technically difficult study due to poor acoustic windows and patient position. Study quality precludes accurate assessment of regional wall motion. NHyperdynamic left ventricular chamber size, systolic function and wall motion. Left ventricular ejection fraction estimated to be 70-75 %. No evidence of ventricular hypertrophy. Mild to moderate posterior pericardial effusion. All other cardiac chamber sizes are within normal limits. Aortic valve calcification with decreased cusp excursion c/w aortic stenosis. Mildly thickened mitral valve leaflets with normal excursion. Mild mitral annulus and aortic root calcification. Pulmonic valve not well visualized. Normal tricuspid valve structure. IVC dilated at 1.7 cm with physiologic collapse. A color flow and spectral Doppler study was performed and revealed: Mild aortic regurgitation. Peak aortic valve gradient of 29 mmHg and a mean of 14 mmHg. Aortic valve area 1.6 cm2 calculated by continuity equation. Trace mitral regurgitation. Mitral diastolic velocities suggest reduced left ventricular relaxation (Grade I). Mild tricuspid regurgitation. Tricuspid systolic velocities suggests peak right ventricular systolic pressure of 64 mmHg, consistent with severe pulmonary hypertension. No pulmonic regurgitation present.
== END 2016-09-18 03:50 | disposition expired | DRG 193 ==
LOC: EDBD 19:33 → EMR 20:04 → EDBEDREQ 20:54 → 2W 21:58 → 3E 09-17 15:44
PROC: 5A09457 Assistance with Respiratory Ventilation, 24-96 Consecutive Hours, Continuous Positive Airway Pressure (ICD-10-PCS; principal; 2016-09-13)
DX: J18.9 Pneumonia, unspecified organism (principal); J96.21 Acute and chronic respiratory failure with hypoxia; E87.0 Hyperosmolality and hypernatremia; E86.0 Dehydration; N17.9 Acute kidney failure, unspecified; I95.9 Hypotension, unspecified; N18.4 Chronic kidney disease, stage 4 (severe); Z51.5 Encounter for palliative care; J84.10 Pulmonary fibrosis, unspecified; E11.9 Type 2 diabetes mellitus without complications; E86.1 Hypovolemia; Z66 Do not resuscitate; Z88.0 Allergy status to penicillin; I10 Essential (primary) hypertension; E07.81 Sick-euthyroid syndrome; E78.00 Pure hypercholesterolemia, unspecified; Z87.891 Personal history of nicotine dependence; I12.9 Hypertensive chronic kidney disease with stage 1 through stage 4 chronic kidney disease, or unspecified chronic kidney disease; R50.9 Fever, unspecified; I35.0 Nonrheumatic aortic (valve) stenosis
CPT/HCPCS: 36415; 71010; 76775; 80048; 80053; 80069; 81001; 82043; 82248; 82436; 82533; 82550; 82553; 82570; 83605; 83735; 83880; 83930; 83935; 84100; 84133; 84300; 84439; 84443; 84481; 84484; 84550; 85007; 85025; 87040; 87181; 89050; 93005; 93306; 94640; 94660; 94664; 94760; J7620